=== PATIENT | female | born 1965 | race Caucasian/White ===

== ENCOUNTER 2016-07-08 03:09 | Emergency (ER) | payer SELFPAY ==
[2016-07-08 03:43] VITALS: BP 110/67; PULSE 107; TEMP 98.7; BMI 31.3
[2016-07-08] MEDS ORDERED: AZITHROMYCIN 250 MG TABLET (FP) PO STA (03:57)
[2016-07-08] MEDS ORDERED: IBUPROFEN 400 MG TABLET (FP) PO ONE ×2 (03:57→04:13)
--- NOTE | 2016-07-08 03:57 | PDOC ---
History of Present Illness - General Chief Complaint: Headache Stated Complaint: SEVERE HEAD ACHE/COUGHING/DIZZINESS Time Seen by Provider: 07/08/16 03:50 History Source: Patient Exam Limitations: No Limitations - History of Present Illness Initial Comments: 07/08/16 05:12 50 year old female presents with cough and cold, occasionally productive of yellow sputum. Pt has head and nasal and head congestion. Pt admits to being a smoker. Ramana recent travel or sick contacts. Pt also c/o mild headache as well. Past History - Travel Traveled outside of the country in the last 30 days: No - Past Medical History Allergies/Adverse Reactions: Allergies Allergy/AdvReac Type Severity Reaction Status Date / Time morphine AdvReac Mild Nausea Verified 07/08/16 03:43 Home Medications: Ambulatory Orders Diazepam [Valium] 5 mg PO Q8H PRN #3 tablet MDD 3 12/09/15 Oxycodone HCl/Acetaminophen [Percocet 5-325 mg Tablet] 1 tab PO Q4H PRN #15 tablet MDD 4 12/09/15 Azithromycin [Zithromax -] 250 mg PO UTDICT #6 tab 07/08/16 Ibuprofen 800 mg PO TID #30 tablet 07/08/16 Pseudoephedrine HCl [Sudafed] 30 mg PO Q6H #20 tablet 07/08/16 HTN: Yes - Immunization History Td Vaccination: Yes TDAP Vaccination: Yes Immunization Up to Date: Yes - Psycho/Social/Smoking Cessation Hx Anxiety: Yes Suicidal Ideation: No Smoking Status: Yes Smoking History: Never smoked Have you smoked in the past 12 months: No Number of Cigarettes Smoked Daily: 10 Information on smoking cessation initiated: No 'Breaking Loose' booklet given: 12/09/15 Hx Alcohol Use: No Drug/Substance Use Hx: No Substance Use Type: Marijuana Hx Substance Use Treatment: No Review of Systems - Review of Systems Constitutional: Yes: Symptoms Reported, See HPI, Chills, Fever. No: Diaphoresis , Loss of Appetite, Malaise, Night Sweats, Weight Stable HEENTM: Yes: Symptoms Reported, See HPI, Throat Pain. No: Eye Pain, Blurred Vision, Tearing, Recent change in vision, Ear Pain, Ear Discharge, Tinnitus, Nose Bleeding, Throat Swelling, Mouth Pain Respiratory: Yes: Symptoms reported, See HPI. No: Cough, Orthopnea, Shortness of Breath, SOB with Exertion, Productive cough Cardiac (ROS): Yes: Symptoms Reported, See HPI. No: Chest Pain, Edema, Irregular Heart Rate, Other ABD/GI: Yes: Symptoms Reported, See HPI, Abdominal Distended. No: Abd. Pain w/ defecation, Blood Streaked Bowels, Constipated, Diarrhea, Difficulty Swallowing , Nausea, Poor Appetite, Poor Fluid Intake : Yes: Symptoms Reported, See HPI. No: Burning, Dysuria, Discharge, Frequency , Flank Pain, Hematuria Musculoskeletal: Yes: Symptoms Reported, See HPI. No: Back Pain, Gout, Joint Pain, Neck Pain Integumentary: Yes: Symptoms Reported, See HPI. No: Bruising, Change in Color, Change in Hair/Nails, Dryness, Lesions, Lumps Neurological: Yes: Symptoms reported, See HPI, Headache. No: Numbness, Paresthesia, Pre-Existing Deficit, Weakness, Unsteady Gait Psychiatric: No: Anxiety, Depression, Frequent Crying, Stressors, Sleep Pattern Change Endocrine: Yes: Symptoms Reported, See HPI. No: Excessive Sweating, Intolerance to Cold, Increased Hunger, Increased Thirst, Unexplained Weight Gain Hematologic/Lymphatic: Yes: Symptoms Reported, See HPI. No: Anemia, Blood Clots , Easy Bleeding, Bleeding Diathesis, Lymph Node Abnormalities *Physical Exam - Vital Signs Last Vital Signs Temp Pulse Resp BP Pulse Ox 98.7 F 107 H 19 110/67 97 07/08/16 03:41 07/08/16 03:41 07/08/16 03:41 07/08/16 03:41 07/08/16 03:41 - Physical Exam Comments: 07/08/16 05:17 *Physical Exam General Appearance: Yes: Appropriately Dressed. No: Apparent Distress, Intoxicated HEENT: positive: EOMI, MAXIMILIANO, Normal ENT Inspection, Normal Voice, TMs Normal, Pharynx Normal. negative: Pale Conjunctivae, Photophobia, Scleral Icterus (R), Scleral Icterus (L) Neck: positive: Trachea midline, Normal Thyroid, Supple. negative: Tender, Rigid, Carotid bruit, Stridor, Lymphadenopathy (R), Lymphadenopathy (L), Thyromegaly Respiratory/Chest: positive: Lungs Clear, Normal Breath Sounds. negative: Chest Tender, Respiratory Distress, Accessory Muscle Use, Labored Respiration, RES, Crackles, Rales, Rhonchi, Stridor, Wheezing, Dullness Cardiovascular: positive: Regular Rhythm, Regular Rate, S1, S2. negative: Edema , JVD, Murmur, Bradycardia, Tachycardia Vascular Pulses: Dorsalis-Pedis (R): 2+, Doralis-Pedis (L): 2+ Gastrointestinal/Abdominal: positive: Normal Bowel Sounds, Flat, Soft. negative : Tender, Organomegaly, Pulsatile Mass, Increased Bowel Sounds, Decreased BS, Distended, Guarding, Rebound, Hernia, Hepatomegaly, Spleenomegaly Lymphatic: negative: Adenopathy, Tenderness Musculoskeletal: positive: Normal Inspection. negative: CVA Tenderness, Decreased Range of Motion Extremity: positive: Normal Capillary Refill, Normal Inspection, Normal Range of Motion, Pelvis Stable. negative: Tender, Pedal Edema, Swelling, Erythema Integumentary: positive: Normal Color, Dry, Warm. 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 negative: EOM Palsy, Facial Droop, Sensory Deficit Medical Decision Making - Medical Decision Making 07/08/16 03:59 Dr. Talley: The scribe's documentation has been prepared under my direction and personally reviewed by me in its entirery. I confirm that the note above accurately reflects all work, treatment, procedures, and medical decision making performed by me. *DC/Admit/Observation/Transfer Diagnosis at time of Disposition: URI (upper respiratory infection) - Discharge Dispostion Disposition: HOME Condition at time of disposition: Stable Admit: No - Prescriptions Prescriptions: Ibuprofen 800 mg PO TID #30 tablet Pseudoephedrine HCl [Sudafed] 30 mg PO Q6H #20 tablet Azithromycin [Zithromax -] 250 mg PO UTDICT #6 tab - Referrals Referrals: Ghazal Wagner MD [Staff Physician] - - Patient Instructions Printed Discharge Instructions: DI for Viral Upper Respiratory Infection -- Adult - Post Discharge Activity Work/School Note: Back to Work
[2016-07-08] MEDS ORDERED: PSEUDOEPHEDRINE HCL 30 MG TABLET PO SCH (04:00)
[2016-07-08] MEDS ORDERED: PSEUDOEPHEDRINE HCL 60 MG TABLET ONE (04:12)
[2016-07-08] MEDS ORDERED: AZITHROMYCIN 250 MG TABLET (FP) ONE (04:12)
== END 2016-07-08 05:20 | disposition home or self-care (01) ==
LOC: JER 03:09 → SUPCPDRO 03:09 → JER 05:20
DX: J06.9 Acute upper respiratory infection, unspecified (principal); I10 Essential (primary) hypertension
CPT/HCPCS: 99281-25

== ENCOUNTER 2016-11-29 15:29 | Emergency (ER) | payer SELFPAY ==
[2016-11-29 15:34] VITALS: TEMP 98.3; BMI 34.3
--- NOTE | 2016-11-29 16:09 | PDOC ---
History of Present Illness - General History Source: Patient Exam Limitations: No Limitations - History of Present Illness Initial Comments: 11/29/16 16:38 Pt. is a 51 y/o female with no PMH who presents to the ED with one day of nausea , non-bilious vomiting, fevers, chills, back pain, and body aches. Pt. states that she woke up early this morning with the nausea and vomiting. She also admits to lower abdominal pain. Has not received her flu shot this year. Also admits to frequency, urgency and diarrhea. Denies chest pain, shortness of breath, hematemasis, blood in the stool. Vital signs notable for a pulse of 101. <Dipika Becker - Last Filed: 11/30/16 23:18> <Chalo Brooks - Last Filed: 12/03/16 20:21> - General Chief Complaint: Pain, Acute Stated Complaint: VOMITING DIARRHEA Time Seen by Provider: 11/29/16 15:52 Past History - Travel Traveled outside of the country in the last 30 days: No Close contact w/someone who was outside of country & ill: No - Past Medical History HTN: Yes - Immunization History Td Vaccination: Yes TDAP Vaccination: Yes Immunization Up to Date: Yes - Suicide/Smoking/Psychosocial Hx Smoking Status: Yes Smoking History: Never smoked Have you smoked in the past 12 months: No Number of Cigarettes Smoked Daily: 5 Information on smoking cessation initiated: No 'Breaking Loose' booklet given: 12/09/15 Hx Alcohol Use: Yes (SOCIALLY) Drug/Substance Use Hx: Yes (MARIJUANA) Substance Use Type: Marijuana Hx Substance Use Treatment: No <Dipika Becker - Last Filed: 11/30/16 23:18> <Chalo Brooks - Last Filed: 12/03/16 20:21> - Past Medical History Allergies/Adverse Reactions: Allergies Allergy/AdvReac Type Severity Reaction Status Date / Time morphine AdvReac Mild Nausea Verified 11/29/16 15:34 Home Medications: Ambulatory Orders Melatonin 1 mg PO HS 11/29/16 Review of Systems - Review of Systems Able to Perform ROS?: Yes Is the patient limited Georgian proficient: No Constitutional: Yes: Chills, Fever. No: Diaphoresis, Weakness HEENTM: No: Ear Pain, Ear Discharge, Nose Pain, Nose Congestion Respiratory: Yes: Cough. No: Shortness of Breath, Wheezing Cardiac (ROS): No: Chest Pain, Lightheadedness, Palpitations, Syncope ABD/GI: Yes: Diarrhea, Nausea, Vomiting : Yes: Frequency. No: Burning, Dysuria, Discharge, Hematuria Musculoskeletal: Yes: Back Pain. No: Joint Pain, Muscle Pain Integumentary: No: Bruising, Erythema, Rash Neurological: No: Headache, Numbness, Weakness, Dizziness Psychiatric: No: Anxiety, Depression, Frequent Crying All Other Systems: Reviewed and Negative <Dipika Becker - Last Filed: 11/30/16 23:18> *Physical Exam - Vital Signs Last Vital Signs Temp Pulse Resp BP Pulse Ox 98.3 F 101 H 18 143/90 98 11/29/16 15:31 11/29/16 15:31 11/29/16 15:31 11/29/16 15:31 11/29/16 15:31 - Physical Exam General Appearance: Yes: Nourished, Appropriately Dressed, Mild Distress ( Appears uncomfortable, holding abdomen on exam bed. AAOx3) HEENT: positive: EOMI, MAXIMILIANO, Normal ENT Inspection, Normal Voice, Pharynx Normal Neck: positive: Trachea midline, Supple. negative: Tender, Rigid Respiratory/Chest: positive: Lungs Clear, Normal Breath Sounds. negative: Chest Tender, Respiratory Distress, Accessory Muscle Use Cardiovascular: positive: Regular Rhythm, Regular Rate, S1, S2 (present), Edema. 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, Fully Oriented, Alert, Normal Mood/ Affect, Normal Response, Motor Strength 5/5 <Dipika Becker - Last Filed: 11/30/16 23:18> - Vital Signs Last Vital Signs Temp Pulse Resp BP Pulse Ox 98.3 F 63 14 110/57 95 11/29/16 15:31 11/29/16 23:29 11/29/16 23:29 11/29/16 23:29 11/29/16 23:29 <Chalo Brooks - Last Filed: 12/03/16 20:21> ED Treatment Course - LABORATORY CBC & Chemistry Diagram: 11/29/16 17:00 11/29/16 17:00 <Dipika Becker - Last Filed: 11/30/16 23:18> - LABORATORY CBC & Chemistry Diagram: 11/29/16 17:00 11/29/16 17:00 - ADDITIONAL ORDERS Additional order review: 11/29/16 17:00 Blood Culture - Final Blood - Peripheral Venous Staphylococcus Epidermidis 11/29/16 16:22 Blood Culture - Final Blood - Peripheral Venous Staphylococcus Epidermidis 11/29/16 18:10 Urine Culture - Final Urine - Urine Clean Catch Contaminated: Please Repeat 11/29/16 17:00 Influenza Types A,B Antigen (TELLY) - Final Nasopharyngeal Swab - Final 11/29/16 17:00 RBC 4.25 MCV 76.7 L MCHC 32.3 RDW 18.0 H MPV 8.0 Neutrophils % 75.9 D Lymphocytes % 15.6 D Monocytes % 5.6 Eosinophils % 2.1 Basophils % 0.8 - Medications Given in the ED: ED Medications Discontinued Medications Generic Name Dose Route Start Last Admin Trade Name Mally PRN Reason Stop Dose Admin Acetaminophen 1,000 mg 11/29/16 16:24 11/29/16 16:45 Ofirmev Injection - IVPB 11/29/16 16:25 1,000 mg ONCE ONE Administration Hydromorphone HCl 1 mg 11/29/16 18:48 11/29/16 19:07 Dilaudid Injection - IVPUSH 11/29/16 18:49 1 mg ONCE ONE Administration Hydromorphone HCl 0.5 mg 11/29/16 22:38 11/29/16 23:03 Dilaudid Injection - IVPUSH 11/29/16 22:39 0.5 mg ONCE ONE Administration Sodium Chloride 1,000 mls @ 1,000 mls/hr 11/29/16 16:24 11/29/16 16:50 Normal Saline - IV 11/29/16 17:23 1,000 mls/hr ASDIR STA Administration Morphine Sulfate 4 mg 11/29/16 18:33 11/29/16 19:09 Morphine Injection - IVPUSH 11/29/16 18:34 Not Given ONCE ONE Ondansetron HCl 4 mg 11/29/16 16:24 11/29/16 16:59 Zofran Injection IVPUSH 11/29/16 16:25 4 mg ONCE ONE Administration <Ou,Chalo - Last Filed: 12/03/16 20:21> Medical Decision Making - Medical Decision Making 11/29/16 16:57 Pt. is a 51 y/o female with no PMH who presents to the ED with one day of fevers , chills, cough, nausea, vomiting, diarrhea, body aches, and lower abdominal pain. Pt. symptoms seem to lean towards a possible viral syndrome; however, could also be pylonephritis, UTI, pneumonia. Less likely appendicitis, colitis. 1. CBC, CMP, Lactic acid, blood cultures, UA, UC, Upreg, Influenza swab 2. Ofirmev, IV fluids, zofran 3. Re-evaluate. 11/29/16 17:32 Pt. still with abdominal pain and back pain with ofirmev. Will order dilaudid at this time for pain relief. 11/29/16 18:23 Influenza swab is negative at this time. Urine is negative. WBC is 10. Will order CT abdomen pelvis with contrast (IV/oral) 11/29/16 19:00 Sign out given to Urvashi Gutierrez [facility]. Waiting for CT/results. <Dipika Becker - Last Filed: 11/30/16 23:18> - Medical Decision Making 11/29/16 20:20 CTAP unremarkable other than incidental finding of lung nodule. Pt informed of possibility that this may represent cancer and understands need for follow up imaging. <ToddChalo - Last Filed: 12/03/16 20:21> *DC/Admit/Observation/Transfer - Discharge Dispostion Admit: No <Dipika Becker - Last Filed: 11/30/16 23:18> <OuChalo - Last Filed: 12/03/16 20:21> Diagnosis at time of Disposition: Gastroenteritis Abdominal pain Qualifiers: Abdominal location: lower abdomen, unspecified Qualified Code(s): R10.30 - Lower abdominal pain, unspecified - Discharge Dispostion Disposition: HOME Condition at time of disposition: Improved - Patient Instructions Printed Discharge Instructions: DI for Viral Gastroenteritis -- Adult Additional Instructions: Drink plenty of fluids. Start a BRAT diet: Bananas rice apples toast Follow up with you doctor as soon as possible. Return to the ER if symptoms worsen. - Post Discharge Activity Forms/Work/School Notes: Back to Work
[2016-11-29] MEDS ORDERED: SODIUM CHLORIDE 1,000 ML IV STA (16:24)
[2016-11-29] MEDS ORDERED: ACETAMINOPHEN 1000 MG/100 ML VIAL (NON FORMULARY) IVPB ONE (16:24)
[2016-11-29] MEDS ORDERED: ONDANSETRON 4 MG/2 ML VIAL IVPUSH ONE (16:24)
[2016-11-29] MEDS ORDERED: ACETAMINOPHEN INJECTION 100 ML IVPB ONE (16:28)
[2016-11-29] MEDS ORDERED: ONDANSETRON 4 MG/2 ML VIAL ONE (16:29)
[2016-11-29 17:08] LABS: BASOPHIL 0.8 % (0-2.0); EOSINOPHIL 2.1 % (0-4.5); MCH 24.8 pg (25.7-33.7); MCHC 32.3 g/dl (32.0-36.0); MEAN CELL VOLUME 76.7 fl (80-96); NEUTROPHILS 75.9 % (42.8-82.8); PLATELET COUNT 303 K/MM3 (134-434)
[2016-11-29 17:33] LABS: INR 1.13 (0.82-1.09); PROTHROMBIN TIME (PATIENT) 12.8 SEC (9.98-11.88)
[2016-11-29 17:44] LABS: ALBUMIN 3.2 g/dl (3.4-5.0); ANION GAP 7 (8-16); CALCIUM 8.4 mg/dL (8.5-10.1); CO2 27 mmol/L (21-32); GLUCOSE,RANDOM 111 mg/dL (74-106)
[2016-11-29 17:48] LABS: ALK PHOS 90 U/L (45-117); BILIRUBIN,TOTAL 0.6 mg/dL (0.2-1.0); CREATININE 0.6 mg/dL (0.55-1.02); SGOT/AST 20 U/L (15-37); SGPT/ALT 40 U/L (12-78); TOT PROT 7.1 g/dl (6.4-8.2)
[2016-11-29] MEDS ORDERED: morphine CARPU-JECT 4 MG/1 ML DISP.SYRIN IVPUSH ONE (18:33)
[2016-11-29] MEDS ORDERED: HYDROmorphone HCL CARPU-JECT 1 MG/1 ML DISP.SYRIN IVPUSH ONE ×2 (18:48→22:38)
[2016-11-29] MEDS ORDERED: HYDROmorphone HCL CARPU-JECT 1 MG/1 ML DISP.SYRIN ONE ×2 (19:01→23:01)
[2016-11-29 19:15] LABS: URINE APPEARANCE SLCLOUDY; URINE BILIRUBIN NEGATIVE (NEGATIVE); URINE BLOOD NEGATIVE (NEGATIVE); URINE COLOR DKYELLOW; URINE GLUCOSE (UA) NEGATIVE (NEGATIVE); URINE KETONE NEGATIVE (NEGATIVE); URINE NITRITE NEGATIVE (NEGATIVE); URINE PROTEIN NEGATIVE (NEGATIVE)
--- NOTE | 2016-11-29 19:32 | PDOC ---
*Physical Exam - Vital Signs Last Vital Signs Temp Pulse Resp BP Pulse Ox 98.3 F 68 18 133/82 96 11/29/16 15:31 11/29/16 19:07 11/29/16 19:07 11/29/16 19:07 11/29/16 19:07 - Physical Exam General Appearance: Yes: Appropriately Dressed Respiratory/Chest: positive: Lungs Clear, Normal Breath Sounds Cardiovascular: positive: Regular Rhythm, Regular Rate Gastrointestinal/Abdominal: positive: Tender (b/l lower quadrant tenderness. ), Soft, Decreased BS ED Treatment Course - LABORATORY CBC & Chemistry Diagram: 11/29/16 17:00 11/29/16 17:00 - ADDITIONAL ORDERS Additional order review: Laboratory Results 11/29/16 11/29/16 11/29/16 18:10 17:00 17:00 PT with INR 12.80 H INR 1.13 Sodium Potassium Chloride Carbon Dioxide Anion Gap BUN Creatinine Creat Clearance w eGFR Random Glucose Lactic Acid 1.0 Calcium Total Bilirubin AST ALT Alkaline Phosphatase Total Protein Albumin Urine Color Dkyellow Urine Appearance Slcloudy Urine pH 5.0 Urine Protein Negative Urine Glucose (UA) Negative Urine Ketones Negative Urine Blood Negative Urine Nitrite Negative Urine Bilirubin Negative Urine Urobilinogen 2.0 H 11/29/16 17:00 PT with INR INR Sodium 138 Potassium 3.9 Chloride 104 Carbon Dioxide 27 Anion Gap 7 L BUN 7 D Creatinine 0.6 Creat Clearance w eGFR > 60 Random Glucose 111 H Lactic Acid Calcium 8.4 L Total Bilirubin 0.6 D AST 20 ALT 40 D Alkaline Phosphatase 90 D Total Protein 7.1 Albumin 3.2 L Urine Color Urine Appearance Urine pH Urine Protein Urine Glucose (UA) Urine Ketones Urine Blood Urine Nitrite Urine Bilirubin Urine Urobilinogen 11/29/16 17:00 Influenza Types A,B Antigen (TELLY) - Final Nasopharyngeal Swab - Final 11/29/16 17:00 RBC 4.25 MCV 76.7 L MCHC 32.3 RDW 18.0 H MPV 8.0 Neutrophils % 75.9 D Lymphocytes % 15.6 D Monocytes % 5.6 Eosinophils % 2.1 Basophils % 0.8 - Medications Given in the ED: ED Medications Discontinued Medications Generic Name Dose Route Start Last Admin Trade Name Freq PRN Reason Stop Dose Admin Acetaminophen 1,000 mg 11/29/16 16:24 11/29/16 16:45 Ofirmev Injection - IVPB 11/29/16 16:25 1,000 mg ONCE ONE Administration Hydromorphone HCl 1 mg 11/29/16 18:48 11/29/16 19:07 Dilaudid Injection - IVPUSH 11/29/16 18:49 1 mg ONCE ONE Administration Sodium Chloride 1,000 mls @ 1,000 mls/hr 11/29/16 16:24 11/29/16 16:50 Normal Saline - IV 11/29/16 17:23 1,000 mls/hr ASDIR STA Administration Morphine Sulfate 4 mg 11/29/16 18:33 11/29/16 19:09 Morphine Injection - IVPUSH 11/29/16 18:34 Not Given ONCE ONE Ondansetron HCl 4 mg 11/29/16 16:24 11/29/16 16:59 Zofran Injection IVPUSH 11/29/16 16:25 4 mg ONCE ONE Administration Medical Decision Making - Medical Decision Making 11/29/16 19:37 Patient reports urinary frequency x1 year. NVD and abdominal pain started at 4 am yesterday. likely gastroenteritis. will CTAP to r/o colitis vs appendicitis 11/29/16 23:37 CTAP: Normal appendix. No active evidence of intestinal obstruction. Moderate distention of the gallbladder may be physiologic please correlate clinically for fasting. Mild hepatomegaly and hepatic steatosis. 6 mm lung nodule. all results discussed with patient. 11/29/16 23:42 will d/c home to follow up with pmd . brat diet. strict return precautions. *DC/Admit/Observation/Transfer Diagnosis at time of Disposition: Gastroenteritis Abdominal pain Qualifiers: Abdominal location: lower abdomen, unspecified Qualified Code(s): R10.30 - Lower abdominal pain, unspecified - Discharge Dispostion Disposition: HOME - Patient Instructions Printed Discharge Instructions: DI for Viral Gastroenteritis -- Adult Additional Instructions: Drink plenty of fluids. Start a BRAT diet: Bananas rice apples toast Follow up with you doctor as soon as possible. Return to the ER if symptoms worsen. - Post Discharge Activity Forms/Work/School Notes: Back to Work
[2016-11-29 22:06] LABS: URINE LEUK ESTERASE Negative (NEGATIVE)
[2016-11-29 23:29] VITALS: BP 110/57; PULSE 63
--- NOTE | 2016-11-30 23:21 | PDOC ---
Patient Follow-up (Call Back) - Post ED Follow - Up Chief Complaint: Nausea/Vomiting Condition at time of discharge: Improved Disposition at time of original discharge: HOME Reason for Call Back: Abnwl. Microbiology (One bottle of the set of 4 positive for gram (+) cocci in clusters. This most likely represents a contaminiation when drawing the sample. Call from micro at 22:30. Needs to be followed up on in AM.)
--- NOTE | 2016-12-01 11:03 | PDOC ---
Patient Follow-up (Call Back) - Post ED Follow - Up Reason for Call Back: Abnwl. Microbiology (Gram + cocci in clusters in aerobic an aerobic bottle Ucx contaminated Pt was seen for viral syndome, labs and lactate wnl called to see how pt feeling and l/m to call back) <Jennifer Schneider - Last Filed: 12/01/16 10:57> - Post ED Follow - Up Reason for Call Back: Abnwl. Microbiology (Blood culture 2 showed staphylococcal epidermis. Called and left message on her cell phone to callback. No answer on home phone [phone]. Will reattempt.) <Zainab Jaimes - Last Filed: 12/03/16 08:42> - Post ED Follow - Up Condition at time of discharge: Improved Disposition at time of original discharge: HOME
== END 2016-11-29 23:54 | disposition home or self-care (01) ==
LOC: JER 15:29
PROC: 3E0337Z Introduction of Electrolytic and Water Balance Substance into Peripheral Vein, Percutaneous Approach (ICD-10-PCS; principal; 2016-11-29)
PROC: 3E033NZ Introduction of Analgesics, Hypnotics, Sedatives into Peripheral Vein, Percutaneous Approach (ICD-10-PCS; 2016-11-29)
PROC: 3E033GC Introduction of Other Therapeutic Substance into Peripheral Vein, Percutaneous Approach (ICD-10-PCS; 2016-11-29)
PROC: 3E033NZ Introduction of Analgesics, Hypnotics, Sedatives into Peripheral Vein, Percutaneous Approach (ICD-10-PCS; 2016-11-29)
PROC: 3E033NZ Introduction of Analgesics, Hypnotics, Sedatives into Peripheral Vein, Percutaneous Approach (ICD-10-PCS; 2016-11-29)
DX: K52.9 Noninfective gastroenteritis and colitis, unspecified (principal)
CPT/HCPCS: 36415; 71010-TC; 74177-TC; 80053; 81003; 83605; 84703; 85025; 85610; 87040; 87086; 87186; 87804; 99283-25; Q9967

== ENCOUNTER 2017-02-16 08:58 | Emergency (ER) | payer SELFPAY ==
[2017-02-16 09:02] VITALS: BMI 34.3
[2017-02-16] MEDS ORDERED: ONDANSETRON 4 MG/2 ML VIAL IVPB ONE (10:32)
[2017-02-16] MEDS ORDERED: SODIUM CHLORIDE 1,000 ML IV STA (10:32)
[2017-02-16] MEDS ORDERED: KETOROLAC TROMETHAMINE 30 MG/1 ML VIAL IVPUSH ONE (10:32)
[2017-02-16] MEDS ORDERED: KETOROLAC TROMETHAMINE 30 MG/1 ML VIAL ONE (10:35)
[2017-02-16] MEDS ORDERED: ONDANSETRON 4 MG/2 ML VIAL ONE (10:35)
[2017-02-16 10:42] LABS: URINE APPEARANCE CLOUDY; URINE BLOOD NEGATIVE (NEGATIVE); URINE COLOR AMBER; URINE GLUCOSE (UA) NEGATIVE (NEGATIVE); URINE KETONE TRACE (NEGATIVE); URINE LEUK ESTERASE NEGATIVE (NEGATIVE); URINE NITRITE NEGATIVE (NEGATIVE)
[2017-02-16 10:42] LABS: BASO % 0.9 % (0-2.0); EOS % 0.6 % (0-4.5); HEMOGLOBIN 12.3 GM/dL (10.7-15.3); LYMPH % 7.6 % (8-40); MCH 24.8 pg (25.7-33.7); MCHC 30.9 g/dl (32.0-36.0); MEAN CELL VOLUME 80.2 fl (80-96); MONO % 11.1 % (3.8-10.2); NEUT % 79.8 % (42.8-82.8); PLATELET COUNT 186 K/MM3 (134-434); RBC 4.98 M/mm3 (3.60-5.2); RDW 21.1 % (11.6-15.6); WHITE BLOOD COUNT 3.9 K/mm3 (4.0-10.0)
[2017-02-16] MEDS ORDERED: ACETAMINOPHEN WITH CODEINE 300MG/30MG TABLET PO ONE (10:43)
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
[2017-02-16 10:46] LABS: URINE PROTEIN 2+ (NEGATIVE)
[2017-02-16 10:50] LABS: EPI CELLS MANY /HPF (FEW); GRANULAR CASTS 6 /lpf; URINE HYALINE CAST 11 /lpf; URINE MUCUS MANY
[2017-02-16 10:58] LABS: ALBUMIN 3.5 g/dl (3.4-5.0); ANION GAP 7 (8-16); BILIRUBIN,TOTAL 0.2 mg/dL (0.2-1.0); BLOOD UREA NITROGEN 7 mg/dL (7-18); CALCIUM 8.5 mg/dL (8.5-10.1); CHLORIDE 105 mmol/L (98-107); CO2 24 mmol/L (21-32); CREATININE 0.7 mg/dL (0.55-1.02); GLUCOSE,RANDOM 119 mg/dL (74-106); SGPT/ALT 131 U/L (12-78); SODIUM 136 mmol/L (136-145); TOT PROT 7.4 g/dl (6.4-8.2)
[2017-02-16 11:00] LABS: ALK PHOS 79 U/L (45-117)
[2017-02-16 11:01] LABS: POTASSIUM 3.9 mmol/L (3.5-5.1); SGOT/AST 141 U/L (15-37)
[2017-02-16] MEDS ORDERED: ACETAMINOPHEN WITH CODEINE 300MG/30MG TABLET ONE (11:02)
[2017-02-16 12:34] VITALS: BP 117/61; PULSE 83; TEMP 100
--- NOTE | 2017-02-16 15:07 | EKG ---
Test Reason : Blood Pressure : / mmHG Vent. Rate : 087 BPM Atrial Rate : 087 BPM P-R Int : 118 ms QRS Dur : 090 ms QT Int : 388 ms P-R-T Axes : 065 085 062 degrees QTc Int : 466 ms NORMAL SINUS RHYTHM POSSIBLE LEFT ATRIAL ENLARGEMENT NONSPECIFIC ST ABNORMALITY ABNORMAL ECG WHEN COMPARED WITH ECG OF 12-MAY-2015 12:01, T WAVE INVERSION NO LONGER EVIDENT IN LATERAL LEADS Confirmed by ISAC RICHTER, KATALINA ([id number]) on 02/16/2017 3:06:49 PM Referred By: Confirmed By:KATALINA CHAU MD
== END 2017-02-16 13:26 | disposition home or self-care (01) ==
LOC: JER 08:58
PROC: 3E0333Z Introduction of Anti-inflammatory into Peripheral Vein, Percutaneous Approach (ICD-10-PCS; principal; 2017-02-16)
PROC: 3E033GC Introduction of Other Therapeutic Substance into Peripheral Vein, Percutaneous Approach (ICD-10-PCS; 2017-02-16)
PROC: 3E0337Z Introduction of Electrolytic and Water Balance Substance into Peripheral Vein, Percutaneous Approach (ICD-10-PCS; 2017-02-16)
DX: J11.1 Influenza due to unidentified influenza virus with other respiratory manifestations (principal); I10 Essential (primary) hypertension; M54.30 Sciatica, unspecified side; F17.210 Nicotine dependence, cigarettes, uncomplicated
CPT/HCPCS: 36415; 71045-TC; 80053; 81003; 81015; 82550; 83605; 84484; 85025; 85379; 87086; 87804; 93005; 93010; 99284-25

== ENCOUNTER 2017-12-24 12:01 | Emergency (ER) | payer SELFPAY ==
[2017-12-24 12:09] VITALS: TEMP 98.4; BMI 34.3
[2017-12-24] MEDS ORDERED: ACETAMINOPHEN 1000 MG/100 ML VIAL (NON FORMULARY) IVPB ONE (13:04)
--- NOTE | 2017-12-24 13:13 | PDOC ---
History of Present Illness - General Chief Complaint: Pain Stated Complaint: LT LEG NUMBNESS & PAIN Time Seen by Provider: 12/24/17 12:16 History Source: Patient Exam Limitations: No Limitations - History of Present Illness Initial Comments: 12/24/17 13:02 52M w/ pmhx of HTN (not currently on meds) and sciatica presents with 2 week history of L lower leg pain. She also admits to 1 week of L lower leg numbness and now 2 day history of L lower leg burning. Pain is rated 6/10 and is described as a throbbing pain, worsened with leg extension and walking, but alleviated by knee flexion. It starts at her L knee and radiates down her leg to the dorsum of her L foot. She states she has never had these symptoms before. Pt admits to taking Aleve and Advil at home as well as uses warm compresses for the pain with minimal relief. She states the pain wakes her up from sleep and also has trouble falling asleep because laying down makes it worse. Denies trauma to her leg. PCP: Pt does not see a PCP because she does not have insurance. 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 Past History - Past Medical History Allergies/Adverse Reactions: Allergies Allergy/AdvReac Type Severity Reaction Status Date / Time morphine AdvReac Mild Nausea Verified 12/24/17 12:08 Home Medications: Ambulatory Orders Acetaminophen [Acetaminophen 8 Hour] 650 mg PO TID #21 tablet.er 12/24/17 COPD: No HTN: Yes - Immunization History Td Vaccination: Yes TDAP Vaccination: Yes Immunization Up to Date: Yes - Suicide/Smoking/Psychosocial Hx Smoking Status: Yes Smoking History: Current every day smoker Have you smoked in the past 12 months: No Number of Cigarettes Smoked Daily: 10 Information on smoking cessation initiated: No 'Breaking Loose' booklet given: 02/16/17 Hx Alcohol Use: No Drug/Substance Use Hx: No Substance Use Type: None Hx Substance Use Treatment: No Review of Systems - Review of Systems Able to Perform ROS?: Yes Is the patient limited Serbian proficient: No Constitutional: No: Chills, Fever HEENTM: Yes: Blurred Vision (chronic) Respiratory: Yes: Shortness of Breath (chronic due to tobacco use) Cardiac (ROS): No: Chest Pain ABD/GI: Yes: Constipated. No: Diarrhea, Nausea, Vomiting : No: Burning, Dysuria, Discharge, Flank Pain, Hematuria Musculoskeletal: Yes: Back Pain (chronic, L lumbar), Muscle Pain (distal LLE ), Muscle Weakness (LLE) Neurological: Yes: Headache (chronic), Unsteady Gait (due to LLE pain) *Physical Exam - Vital Signs Last Vital Signs Temp Pulse Resp BP Pulse Ox 98.4 F 104 H 20 168/89 99 12/24/17 12:05 12/24/17 12:05 12/24/17 12:05 12/24/17 12:05 12/24/17 12:05 - Physical Exam General Appearance: Yes: Nourished, Appropriately Dressed HEENT: positive: EOMI, MAXIMILIANO, Normal Voice, Pharynx Normal Neck: positive: Normal Thyroid, Supple Respiratory/Chest: positive: Lungs Clear, Normal Breath Sounds Cardiovascular: positive: Regular Rhythm, Regular Rate, S1, S2. negative: Murmur Vascular Pulses: Dorsalis-Pedis (R): 2+, Doralis-Pedis (L): 2+ Gastrointestinal/Abdominal: positive: Normal Bowel Sounds, Soft Musculoskeletal: negative: CVA Tenderness Extremity: positive: Normal Range of Motion Neurologic: positive: superintendent meters II-XII NML intact, Fully Oriented, Alert, Numbness, Sensory Deficit (LLE), Other (Decreased sensation on lateral L lower leg and foot; 5/5 motor strength in U/L R extremity; difficult to assess LLE motor strength due to pain) ED Treatment Course - LABORATORY CBC & Chemistry Diagram: 12/24/17 13:20 12/24/17 13:20 Medical Decision Making - Medical Decision Making 12/24/17 13:20 52F w/ pmhx of HTN and sciatica presents with 2 week hx of LLE pain. -Will obtain CBC/CMP, U/A, Upreg -Will give IV Tylenol for pain -re-assess pt 12/24/17 14:13 -CBC/CMP unremarkable -CT of lumbar spine ordered 12/24/17 16:10 -CT lumbar spine showed degenerative discogenic changes at L2-L3 and L5-S1 circumferential disc bulging and possible mild L of midline eccentric bulging L5 -S1. -Pt symptoms improved with IV Tylenol. DC to home. Discussed with pt need to follow up with PCP, recommended f/u at residency clinic for continuation of care. Will give Tylenol for pain. Case discussed with Dr. Palma. -Rafia Giraldo, DO - PGY1 *DC/Admit/Observation/Transfer Diagnosis at time of Disposition: Herniated disc Qualifiers: Spinal region: lumbosacral Qualified Code(s): M51.27 - Other intervertebral disc displacement, lumbosacral region - Discharge Dispostion Disposition: HOME Condition at time of disposition: Improved Decision to Admit order: No - Referrals Referrals: [facility] [Provider Group] - Patient Instructions Printed Discharge Instructions: DI for Herniated Disc Additional Instructions: You were seen in the ED for complaints of left leg pain. In the ED, a CT of the lumbar spine was done that showed multiple herniated discs in your lumbosacral spine. You were given IV Tylenol for your pain. Your symptoms improved. There is no acute need for hospitalization at this time. You are being discharged home. Please follow up with your primary care physician. You have been given a referral to follow up at the residency clinic of [facility]. It is important to follow up with your primary care doctor for your condition. Please take [id number] Tylenol 500 mg, 2 tablets, every 6 hours for your pain. If you experience worsening leg or back pain, new tingling and numbness, inability to work, chest pain, shortness of breath, please proceed to your nearest emergency room immediately. - Post Discharge Activity Forms/Work/School Notes: Back to Work
[2017-12-24 13:35] LABS: BASO % 0.6 % (0-2.0); EOS % 3.3 % (0-4.5); HEMATOCRIT 44.4 % (32.4-45.2); HEMOGLOBIN 14.3 GM/dL (10.7-15.3); LYMPH % 22.8 % (8-40); MCH 29.2 pg (25.7-33.7); MCHC 32.3 g/dl (32.0-36.0); MEAN CELL VOLUME 90.6 fl (80-96); MEAN PLT VOLUME 8.5 fl (7.5-11.1); MONO % 6.9 % (3.8-10.2); NEUT % 66.4 % (42.8-82.8); PLATELET COUNT 266 K/MM3 (134-434); RDW 17.1 % (11.6-15.6); WHITE BLOOD COUNT 8.5 K/mm3 (4.0-10.0)
[2017-12-24 13:55] LABS: ALBUMIN 3.5 g/dl (3.4-5.0); ALK PHOS 84 U/L (45-117); ANION GAP 7 MMOL/L (8-16); BILIRUBIN,TOTAL 0.4 mg/dL (0.2-1); BLOOD UREA NITROGEN 11 mg/dL (7-18); CALCIUM 8.7 mg/dL (8.5-10.1); CHLORIDE 105 mmol/L (98-107); CO2 26 mmol/L (21-32); CREATININE 0.5 mg/dL (0.55-1.3); GLUCOSE,RANDOM 92 mg/dL (74-106); POTASSIUM 3.9 mmol/L (3.5-5.1); SGOT/AST 23 U/L (15-37); SGPT/ALT 32 U/L (13-61); SODIUM 138 mmol/L (136-145); TOT PROT 7.2 g/dl (6.4-8.2)
[2017-12-24] MEDS ORDERED: ACETAMINOPHEN INJECTION 100 ML IVPB ONE ×2 (14:05→14:06)
[2017-12-24 14:26] LABS: URINE APPEARANCE CLEAR; URINE BILIRUBIN NEGATIVE (<2.0 mg/dL); URINE COLOR YELLOW; URINE GLUCOSE (UA) NEGATIVE (NEGATIVE); URINE KETONE NEGATIVE (NEGATIVE); URINE LEUK ESTERASE NEGATIVE (NEGATIVE); URINE NITRITE NEGATIVE (NEGATIVE); URINE PROTEIN NEGATIVE (NEGATIVE); URINE UROBILINOGEN NEGATIVE mg/dL (0.2-1.0)
--- NOTE | 2017-12-24 16:12 | PDOC ---
Attending Attestation - [facility] HPI: 12/24/17 16:16 The patient is a 52 year old female with a significant PMH of hypertension, chronic left sided back pain and sciatica who presents to the emergency department with let leg numbness and pain for about 2 weeks. The patient reports that she has been experiencing worsening pain for about 2 weeks. She states that in the past week she has noticed some numbness from her knee and down her leg. The patient reports that her pain is worsened with leg extension and alleviated with flexion. She states that she tried taking aleve for the pain and applying warm compresses with no apparent relief. The patient states that her left leg pain and numbness wakes her up out of her sleep. The patient denies any heavy lifting, trauma or injury prior to her pain. She denies any other symptoms . she denies any fever, chills, nausea , vomiting, diarrhea, constipation or urinary symptoms. She denies any chest pain, shortness of breath , headache or dizziness. The patient denies any other complaints. 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 Documentation prepared by Ketty Monzon, acting as medical lab technologist for Germania Palma MD. <Ketty Monzon - Last Filed: 12/24/17 16:16> - Resident Resident Name: Rafia Giraldo - ED Attending Attestation I have performed the following: I have examined & evaluated the patient, The case was reviewed & discussed with the resident, I agree w/resident's findings & plan, Exceptions are as noted - Physicial Exam PE: GENERAL: Awake, alert, and fully oriented, in no acute distress HEAD: No signs of trauma EYES: PERRLA, EOMI, sclera anicteric, conjunctiva clear ENT: Auricles normal inspection, hearing grossly normal, nares patent, oropharynx clear without exudates. Moist mucosa NECK: Normal ROM, supple, no lymphadenopathy, JVD, or masses LUNGS: Breath sounds equal, clear to auscultation bilaterally. No wheezes, and no crackles HEART: Regular rate and rhythm, normal S1 and S2, no murmurs, rubs or gallops ABDOMEN: Soft, nontender, normoactive bowel sounds. No guarding, no rebound. No masses EXTREMITIES: Normal range of motion, no edema. No clubbing or cyanosis. No cords, erythema, or tenderness NEUROLOGICAL: Cranial nerves II through XII grossly intact. Normal speech. Unable to ambulate due to back pain. Motor and sensation intact. SKIN: Warm, Dry, normal turgor, no rashes or lesions noted. SPINE: +Midline tenderness L5/S1 region. No step-offs. - Medical Decision Making Pt improved significantly with ofirmev. CT shows disc disease which is consistent with the presentation. Pt has no insurance, will sent to clinic for f /u, as she may need outpatient MRI if symptoms continue. <Germania Palma - Last Filed: 12/25/17 12:13>
[2017-12-24 17:35] VITALS: BP 146/85; PULSE 90
== END 2017-12-24 17:35 | disposition home or self-care (01) ==
LOC: JER 12:01
PROC: 3E033NZ Introduction of Analgesics, Hypnotics, Sedatives into Peripheral Vein, Percutaneous Approach (ICD-10-PCS; principal; 2017-12-24)
DX: M51.27 Other intervertebral disc displacement, lumbosacral region (principal)
CPT/HCPCS: 36415; 72131-TC; 80053; 81003; 84703; 85025; 99283-25; J0131

== ENCOUNTER 2018-01-27 13:49 | Emergency (ER) | payer SELFPAY ==
[2018-01-27 13:54] VITALS: BMI 32.5
[2018-01-27] MEDS ORDERED: SODIUM CHLORIDE 1,000 ML IV STA (14:31)
[2018-01-27] MEDS ORDERED: KETOROLAC TROMETHAMINE 30 MG/1 ML VIAL IVPUSH ONE (14:31)
[2018-01-27] MEDS ORDERED: KETOROLAC TROMETHAMINE 30 MG/1 ML VIAL ONE (14:32)
[2018-01-27] MEDS ORDERED: KETOROLAC TROMETHAMINE 15 MG/ML VIAL ONE (14:32)
[2018-01-27 15:32] LABS: ALK PHOS 105 U/L (45-117); ANION GAP 9 MMOL/L (8-16); BILIRUBIN,TOTAL 0.7 mg/dL (0.2-1); BLOOD UREA NITROGEN 11 mg/dL (7-18); CALCIUM 8.9 mg/dL (8.5-10.1); CHLORIDE 105 mmol/L (98-107); CO2 23 mmol/L (21-32); CREATININE 0.7 mg/dL (0.55-1.3); GLUCOSE,RANDOM 86 mg/dL (74-106); LIPASE 102 U/L (73-393); MAGNESIUM 2.1 mg/dL (1.8-2.4); POTASSIUM 4.3 mmol/L (3.5-5.1); SGOT/AST 18 U/L (15-37); SGPT/ALT 28 U/L (13-61); SODIUM 137 mmol/L (136-145); TOT PROT 7.9 g/dl (6.4-8.2)
--- NOTE | 2018-01-27 16:07 | PDOC ---
History of Present Illness - General Chief Complaint: Pain Stated Complaint: PAIN Time Seen by Provider: 01/27/18 14:30 History Source: Patient - History of Present Illness Initial Comments: 01/27/18 16:18 The patient is a 52 year old female with a PMH of HTN, sciatic, chronic back pain (2/2 to herniated disc x3) who presents to our ED c/o acute onset of abdominal pain. The pain started this morning when patient woke up and is sharp , localized to her LLQ, intermittent occurring 2-3 times/hour lasting 2-3 minutes. Denies nausea/vomiting, diarrhea/constipation. Last BM was this morning and was normal. Last PO intake while in ED. States she has a h/o ovarian cyst on her R side which was a simlar pain and a drug she believes is called "Dilaudid" helped her pain at that time. LMP was in September 2017 and believes she is going through menopause because she is experiencing hot flashes. Allergy: Morphine (vomiting) Surgical: Tubal Ligation Social: 1 ppd for 20+ year, social alcohol, denies recreational drugs PMD: none, as per EMR has been referred to [facility] IM resident clinic As per EMR, patient was last evaluated in our ED in 12/2017 for LLE numbness at which time CT showed herniated discs patient was discharged with instruction to establish primary care at IM resident clinic. TVUS in 2015 shows R sided cyst measuring 2.3 x 2.1 x 1.6 (patient being evaluated for vaginal bleeding). Past History - Past Medical History Allergies/Adverse Reactions: Allergies Allergy/AdvReac Type Severity Reaction Status Date / Time morphine AdvReac Mild Nausea Verified 01/27/18 13:53 Home Medications: Ambulatory Orders Metronidazole [Flagyl] 500 mg PO TID #21 capsule 01/27/18 levoFLOXacin [Levaquin -] 500 mg PO DAILY #7 tablet 01/27/18 COPD: No HTN: Yes Other medical history: herniated disc - Immunization History Td Vaccination: Yes TDAP Vaccination: Yes Immunization Up to Date: Yes - Suicide/Smoking/Psychosocial Hx Smoking Status: Yes Smoking History: Current some day smoker Have you smoked in the past 12 months: No Number of Cigarettes Smoked Daily: 10 Information on smoking cessation initiated: No 'Breaking Loose' booklet given: 02/16/17 Hx Alcohol Use: Yes (social) Drug/Substance Use Hx: No Substance Use Type: None Hx Substance Use Treatment: No Review of Systems - Review of Systems Constitutional: No: Chills, Fever Respiratory: No: Cough, Shortness of Breath Cardiac (ROS): No: Chest Pain, Lightheadedness, Palpitations, Syncope ABD/GI: Yes: Abdominal cramping. No: Blood Streaked Bowels, Constipated, Diarrhea, Nausea, Rectal Bleeding, Vomiting : No: Burning, Dysuria *Physical Exam - Vital Signs Last Vital Signs Temp Pulse Resp BP Pulse Ox 98.3 F 129 H 25 H 200/100 H 99 01/27/18 13:51 01/27/18 13:51 01/27/18 13:51 01/27/18 13:51 01/27/18 13:51 - Physical Exam General Appearance: Yes: Nourished, Obese HEENT: positive: Normal Voice, Hearing Grossly Normal Neck: positive: Trachea midline, Supple Respiratory/Chest: positive: Lungs Clear, Normal Breath Sounds. negative: Crackles, Rales, Rhonchi, Stridor, Wheezing Cardiovascular: positive: S1, S2. negative: Edema, JVD Gastrointestinal/Abdominal: positive: Normal Bowel Sounds, Soft, Other (LLQ tenderness, ) Musculoskeletal: negative: CVA Tenderness (R), CVA Tenderness (L) Extremity: positive: Normal Capillary Refill, Normal Inspection Moderate Sedation - Procedure Monitoring Vital Signs: Procedure Monitoring Vital Signs Temperature 98.3 F 01/27/18 13:51 Pulse Rate 129 H 01/27/18 13:51 Respiratory Rate 25 H 01/27/18 13:51 Blood Pressure 200/100 H 01/27/18 13:51 O2 Sat by Pulse Oximetry (%) 99 01/27/18 13:51 ED Treatment Course - LABORATORY CBC & Chemistry Diagram: 01/27/18 15:00 01/27/18 15:00 - ADDITIONAL ORDERS Additional order review: Laboratory Results 01/27/18 15:00 Sodium 137 Potassium 4.3 Chloride 105 Carbon Dioxide 23 Anion Gap 9 BUN 11 Creatinine 0.7 Creat Clearance w eGFR > 60 Random Glucose 86 Calcium 8.9 Magnesium 2.1 Total Bilirubin 0.7 AST 18 ALT 28 Alkaline Phosphatase 105 Total Protein 7.9 Albumin 4.0 Lipase 102 - Medications Given in the ED: ED Medications Discontinued Medications Generic Name Dose Route Start Last Admin Trade Name Freq PRN Reason Stop Dose Admin Sodium Chloride 1,000 mls @ 1,000 mls/hr 01/27/18 14:31 01/27/18 14:59 Normal Saline - IV 01/27/18 15:30 1,000 mls/hr ASDIR STA Administration Ketorolac Tromethamine 30 mg 01/27/18 14:31 01/27/18 14:35 Toradol Injection - IVPUSH 01/27/18 14:32 30 mg ONCE ONE Administration Medical Decision Making - Medical Decision Making 01/27/18 16:23 52 year old female with acute onset of LLQ abdominal pain. Initial VS hypertensive and tachycardic, however repeat VS shows BP 147/98, remains tachycardic at 105. TTP on LLQ without peritoneal signs. Frontal diagnosis: adenxal pathology including ovarian torsion/cyst, renal pathology including nephrolithiasis, renal artery stenosis, less likely colitis, diverticulitis, mesenteric ischemia. Basic labs, UA/Urine culture ordered in triage pending. Dilaudid for pain. Reassess. 01/27/18 17:05 01/27/18 17:09 Mild leukocytosis (13.1) UA pending 01/27/18 18:01 Patient reassessed at bedside, symptomatically improved with Dilaudid, repeat belly exam shows continued LLQ TTP with some epigastric TTP. Will obtain abdomen CT w/PO contrast to r/o diverticulosis vs. dilaudid demand. Zofran for nausea. 01/27/18 19:30 UA shows 1+ blood, Nitrite (-), Leukocyte esterase (-), 5 WBC --> less likely renal/UTI, patient to CT @ 199901/27/18 22:13 CT Abdomen/Pelvis shows diverticulosis w/o diverticulitis however as patient has focal LLQ tenderness, will treat for clinical diverticulitis. Follow-up with GI. Patient and patient's son counseled on plan of care. I discussed the physical exam findings, ancillary test results and final diagnoses with the patient. I answered all of the patient's questions. The patient was satisfied with the care received and felt comfortable with the discharge plan and treatment plan. The patient will return to the Emergency Department with any new, persistent or worsening symptoms. *DC/Admit/Observation/Transfer Diagnosis at time of Disposition: Abdominal pain - Discharge Dispostion Disposition: HOME Condition at time of disposition: Good Decision to Admit order: No - Prescriptions Prescriptions: levoFLOXacin [Levaquin -] 500 mg PO DAILY #7 tablet Metronidazole [Flagyl] 500 mg PO TID #21 capsule - Referrals Referrals: Travis Holly MD [Staff Physician] - Reza Fine DO [Staff Physician] - - Patient Instructions Printed Discharge Instructions: DI for Diverticulitis, DI for Diverticulosis Additional Instructions: You were evaluated today for your abdominal pain. A cat scan of your abdomen shows mild diverticulosis (information about this condition provided in your discharge papers). At this time you are safe for discharge home. We have sent two antibiotics to your pharmacy. Please complete the entire prescribed antibiotic course. Please make an appointment for follow-up evaluation with your primary care doctor in the next 3 days. Should you not have a primary care doctor a referral has been provided for you. In addition, please make an appointment with a curb worker (contact information provided) for further evaluation. Your care is not complete until you are evaluated by a curb worker and a primary care doctor. Return to the Emergency Department for any new/worsening/concerning symptoms. - Post Discharge Activity
[2018-01-27 16:13] LABS: BASO % 0.8 % (0-2.0); EOS % 1.5 % (0-4.5); HEMATOCRIT 46.6 % (32.4-45.2); LYMPH % 14.6 % (8-40); MCHC 34.3 g/dl (32.0-36.0); MEAN CELL VOLUME 90.4 fl (80-96); MEAN PLT VOLUME 8.8 fl (7.5-11.1); MONO % 6.4 % (3.8-10.2); NEUT % 76.7 % (42.8-82.8); PLATELET COUNT 290 K/MM3 (134-434); RBC 5.16 M/mm3 (3.60-5.2); RDW 15.9 % (11.6-15.6); WHITE BLOOD COUNT 13.1 K/mm3 (4.0-10.0)
[2018-01-27] MEDS ORDERED: HYDROmorphone HCL CARPU-JECT 2 MG/1 ML DISP.SYRIN IVPUSH ONE ×2 (16:15→16:36)
--- NOTE | 2018-01-27 16:36 | PDOC ---
Attending Attestation - HPI HPI: 01/27/18 16:40 The patient is a 52 year old female with a significant past medical history of HTN, sciatica, chronic back pain (2/2 to herniated disc x3) who presents to the emergency department with complaint of left lower abdominal pain since this morning. She describes the pain as sharp, localized to the left lower quadrant, intermittent lasting 2-3 minutes and self-resolving. She denies any other associated symptoms. She denies any exacerbating or alleviating factors. She denies taking OTC medication for her current pain. LMP was in September 2017 and believes she is going through menopause because she is experiencing hot flashes. Allergy: Morphine (vomiting) Surgical: Tubal Ligation Social: 1 ppd for 20+ year, social alcohol, denies recreational drugs PCP: Dr. Hackett - Medical Decision Making 01/27/18 16:40 Documentation prepared by Luz Vance, acting as medical center representative for Andesr Mcnulty MD <Luz Vance - Last Filed: 01/27/18 16:40> - Physicial Exam PE: 01/27/18 17:34 CONSTITUTIONAL: (+) Obese. Awake and alert. NECK: Supple; non-tender; no cervical lymphadenopathy CARD: Normal S1, S2; no murmurs, rubs, or gallops RESP: Normal chest excursion with respiration; breath sounds clear and equal bilaterally; no wheezes, rhonchi, or rales ABD: (+) Left lower quadrant tenderness. No rebound or guarding. Soft, non- distended. No palpable organomegaly, no palpable hernias. EXT: Normal ROM in all four extremities; non-tender to palpation; distal pulses intact SKIN: Warm, dry, no rash NEURO: No focal neurological deficiencies. <Jr Posadas - Last Filed: 01/27/18 17:57> - Resident Resident Name: Tracy Márquez - ED Attending Attestation I have performed the following: I have examined & evaluated the patient, The case was reviewed & discussed with the resident, I agree w/resident's findings & plan, Exceptions are as noted - Medical Decision Making 01/27/18 22:36 52-year-old female presents with atraumatic left lower quadrant pain. CBC reveals mild leukocytosis with predominance of neutrophils. Urinalysis within normal limit. Will obtain CT that and pelvis to rule out diverticulitis. Will reassess. Likely discharge. 01/27/18 22:41 Patient improved clinically. Patient tolerates by mouth. CT that and pelvis reveals no evidence of diverticulitis, diverticulosis is present. Given leukocytosis and clinical findings, I suspect mild clinical diverticulitis. Will treat with Levaquin and Flagyl with outpatient follow-up with GI. <Anders Mcnulty - Last Filed: 01/27/18 22:41>
[2018-01-27] MEDS ORDERED: HYDROmorphone HCl 2 MG/ML VIAL ONE (16:38)
[2018-01-27] MEDS ORDERED: ONDANSETRON 4 MG/2 ML VIAL IVPUSH ONE ×2 (17:55→20:07)
[2018-01-27] MEDS ORDERED: ONDANSETRON 4 MG/2 ML VIAL ONE ×2 (18:04→20:10)
[2018-01-27 18:18] LABS: URINE APPEARANCE CLOUDY; URINE COLOR AMBER; URINE GLUCOSE (UA) NEGATIVE (NEGATIVE); URINE KETONE TRACE (NEGATIVE); URINE LEUK ESTERASE NEGATIVE (NEGATIVE); URINE NITRITE NEGATIVE (NEGATIVE); URINE PROTEIN 2+ (NEGATIVE); URINE UROBILINOGEN 4.0 E.U/dl mg/dL (0.2-1.0)
[2018-01-27 18:54] LABS: EPI CELLS MODERATE /HPF (FEW); URINE HYALINE CAST 123 /lpf; URINE MUCUS MANY
[2018-01-27] MEDS ORDERED: morphine SULFATE 4 MG/ML VIAL IVPUSH ONE (20:07)
[2018-01-27] MEDS ORDERED: morphine SULFATE 4 MG/ML VIAL ONE (20:09)
[2018-01-27 23:05] VITALS: BP 136/68; PULSE 98; TEMP 98.6
== END 2018-01-27 23:04 | disposition home or self-care (01) ==
LOC: JER 13:49
PROC: 3E0337Z Introduction of Electrolytic and Water Balance Substance into Peripheral Vein, Percutaneous Approach (ICD-10-PCS; principal; 2018-01-27)
PROC: 3E033NZ Introduction of Analgesics, Hypnotics, Sedatives into Peripheral Vein, Percutaneous Approach (ICD-10-PCS; 2018-01-27)
PROC: 3E033GC Introduction of Other Therapeutic Substance into Peripheral Vein, Percutaneous Approach (ICD-10-PCS; 2018-01-27)
PROC: 3E033GC Introduction of Other Therapeutic Substance into Peripheral Vein, Percutaneous Approach (ICD-10-PCS; 2018-01-27)
PROC: 3E0333Z Introduction of Anti-inflammatory into Peripheral Vein, Percutaneous Approach (ICD-10-PCS; 2018-01-27)
DX: K57.30 Diverticulosis of large intestine without perforation or abscess without bleeding (principal)
CPT/HCPCS: 36415; 74177-TC; 76775-TC; 76830-TC; 80053; 81003; 81015; 83690; 83735; 85025; 87086; 99283-25; J7030; Q9967

== ENCOUNTER 2018-01-31 12:20 | Emergency (ER) | payer SELFPAY ==
[2018-01-31] MEDS ORDERED: SODIUM CHLORIDE 1,000 ML IV STA (12:27)
[2018-01-31 12:31] VITALS: TEMP 99; BMI 34.3
--- NOTE | 2018-01-31 12:38 | PDOC ---
History of Present Illness - General Chief Complaint: Pain Stated Complaint: ABDOMINAL PAIN Time Seen by Provider: 01/31/18 12:22 History Source: Patient Exam Limitations: No Limitations - History of Present Illness Travel History: No Initial Comments: 01/31/18 13:18 Best Contact:[phone] PCP:N/A Pmhx:HTN Pshx: 1994: BTL Allergies:Morphine/nausea FH:0 Social Hx: Cigarettes/ 1pk/d/30 years, last cigarette this am Alcohol/ social Drugs/ marijuana 52-year-old female nela presents to the emergency department with her son complaining of left lower quadrant abdominal pain since this morning. Pain is described as 10/10 sharp nonradiating intermittent discomfort without fever, chills, nausea/vomiting, headache, dizziness, lightheadedness, neck pain/back pain, chest pain, shortness of breath, urinary symptoms: Frequency/urgency/ hesitancy, hematuria. There are no alleviating or exacerbating factors. Patient was diagnosed with diverticulosis 4 days ago and was discharged on Levaquin and Flagyl. Patient states she's been compliant with the medication. Past History - Past Medical History Allergies/Adverse Reactions: Allergies Allergy/AdvReac Type Severity Reaction Status Date / Time morphine AdvReac Mild Nausea Verified 01/31/18 12:31 Home Medications: Ambulatory Orders Metronidazole [Flagyl] 500 mg PO TID #21 capsule 01/27/18 levoFLOXacin [Levaquin -] 500 mg PO DAILY #7 tablet 01/27/18 COPD: No GI Disorders: Yes (diverticulits) HTN: Yes - Immunization History Td Vaccination: Yes TDAP Vaccination: Yes Immunization Up to Date: Yes - Suicide/Smoking/Psychosocial Hx Smoking Status: Yes Smoking History: Never smoked Have you smoked in the past 12 months: No Number of Cigarettes Smoked Daily: 10 Information on smoking cessation initiated: No 'Breaking Loose' booklet given: 02/16/17 Hx Alcohol Use: No Drug/Substance Use Hx: No Substance Use Type: None Hx Substance Use Treatment: No Review of Systems - Review of Systems Able to Perform ROS?: Yes Comments:: 01/31/18 13:17 CONSTITUTIONAL: Absent: fever, chills, diaphoresis, generalized weakness, malaise, loss of appetite HEENT: Absent: rhinorrhea, nasal congestion, throat pain, throat swelling, difficulty swallowing, mouth swelling, ear pain, eye pain, visual Changes CARDIOVASCULAR: Absent: chest pain, loss of consciousness, palpitations, irregular heart rate, peripheral edema RESPIRATORY: Absent: cough, shortness of breath, dyspnea with exertion, orthopnea, wheezing, stridor, hemoptysis GASTROINTESTINAL: +LLQ pain Absent: abdominal distension, nausea, vomiting, diarrhea, constipation, melena, hematochezia GENITOURINARY: Absent: dysuria, frequency, urgency, hesitancy, hematuria, flank pain, genital pain MUSCULOSKELETAL: Absent: myalgia, arthralgia, joint swelling SKIN: Absent: rash, itching, pallor HEMATOLOGIC/IMMUNOLOGIC: Absent: easy bleeding, easy bruising, lymphadenopathy, frequent infections ENDOCRINE: Absent: unexplained weight gain, unexplained weight loss, heat intolerance, cold intolerance NEUROLOGIC: Absent: headache, focal weakness or paresthesias, dizziness, unsteady gait, seizure, mental status changes, bladder or bowel incontinence PSYCHIATRIC: Absent: anxiety, depression, suicidal or homicidal ideation, hallucinations. Is the patient limited [place] proficient: No *Physical Exam - Vital Signs Last Vital Signs Temp Pulse Resp BP Pulse Ox 99.0 F 124 H 18 207/138 H 100 01/31/18 12:21 01/31/18 12:21 01/31/18 12:21 01/31/18 12:21 01/31/18 12:21 - Physical Exam Comments: 01/31/18 13:18 GENERAL: Well developed, well nourished. Awake and alert. No acute distress. HEENT: Normocephalic, atraumatic. PERRLA, EOMI. No conjunctival pallor. Sclera are non- icteric. Moist mucous membranes. Oropharynx is clear. NECK: Supple. Full ROM. No JVD. Carotid pulses 2+ and symmetric, without bruits. No thyromegaly. No lymphadenopathy. CARDIOVASCULAR: Regular rate and rhythm. No murmurs, rubs, or gallops. Distal pulses are 2+ and symmetric. PULMONARY: No evidence of respiratory distress. Lungs clear to auscultation bilaterally. No wheezing, rales or rhonchi. ABDOMINAL: +LLQ pain on palp Soft. Non-distended. No rebound or guarding. No organomegaly. Normoactive bowel sounds. MUSCULOSKELETAL Normal range of motion at all joints. No bony deformities or tenderness. No CVA tenderness. EXTREMITIES: No cyanosis. No clubbing. No edema. No calf tenderness. SKIN: Warm and dry. Normal capillary refill. No rashes. No jaundice. NEUROLOGICAL: Alert, awake, appropriate. Cranial nerves 2-12 intact. No deficits to light touch and temperature in face, upper extremities and lower extremities. No motor deficits in the in face, upper extremities and lower extremities. Normoreflexic in the upper and lower extremities. Normal speech. Toes are down- going bilaterally. Gait is normal without ataxia. PSYCHIATRIC: Cooperative. Good eye contact. Appropriate mood and affect. Moderate Sedation - Procedure Monitoring Vital Signs: Procedure Monitoring Vital Signs Temperature 99.0 F 01/31/18 12:21 Pulse Rate 124 H 01/31/18 12:21 Respiratory Rate 18 01/31/18 12:21 Blood Pressure 207/138 H 01/31/18 12:21 O2 Sat by Pulse Oximetry (%) 100 01/31/18 12:21 ED Treatment Course - LABORATORY CBC & Chemistry Diagram: 01/31/18 12:23 01/31/18 12:23 - RADIOLOGY Radiograph Interpretation: 01/31/18 13:18 CT abd/pelvis iv contrast: Unremarkable CT of the abdomen and pelvis no enlarged abdominal or pelvic lymph nodes, the pelvic organs are grossly unremarkable, the appendix is normal, the remainder of the bowel is unremarkable. The liver, gallbladder, adrenals, pancreas and spleen are unremarkable. *DC/Admit/Observation/Transfer Diagnosis at time of Disposition: Diverticulosis Qualifiers: Diverticulosis site: unspecified location Diverticulosis bleeding: diverticulosis without bleeding Qualified Code(s): K57.90 - Diverticulosis of intestine, part unspecified, without perforation or abscess without bleeding - Discharge Dispostion Disposition: HOME Condition at time of disposition: Stable Decision to Admit order: No - Referrals Referrals: Slava Abad MD [Staff Physician] - - Patient Instructions Printed Discharge Instructions: DI for Diverticulosis Additional Instructions: Follow up with your physician and the [facility] this week Return to the ER for severe/persistent/worsening symptoms - Post Discharge Activity
[2018-01-31] MEDS ORDERED: HYDROmorphone HCL CARPU-JECT 2 MG/1 ML DISP.SYRIN IVPUSH ONE (12:40)
[2018-01-31] MEDS ORDERED: ONDANSETRON 4 MG/2 ML VIAL IVPUSH ONE (12:40)
[2018-01-31] MEDS ORDERED: HYDROmorphone HCl 2 MG/ML VIAL ONE (12:42)
[2018-01-31] MEDS ORDERED: ONDANSETRON 4 MG/2 ML VIAL ONE (12:42)
[2018-01-31 12:45] LABS: BASO % 1.1 % (0-2.0); HEMATOCRIT 42.2 % (32.4-45.2); HEMOGLOBIN 14.9 GM/dL (10.7-15.3); LYMPH % 19.4 % (8-40); MCH 32.1 pg (25.7-33.7); MCHC 35.4 g/dl (32.0-36.0); MEAN CELL VOLUME 90.8 fl (80-96); MEAN PLT VOLUME 8.2 fl (7.5-11.1); MONO % 7.3 % (3.8-10.2); NEUT % 69.2 % (42.8-82.8); PLATELET COUNT 238 K/MM3 (134-434); RBC 4.65 M/mm3 (3.60-5.2); RDW 15.5 % (11.6-15.6)
[2018-01-31 13:28] LABS: ALBUMIN 3.3 g/dl (3.4-5.0); ALK PHOS 86 U/L (45-117); ANION GAP 6 MMOL/L (8-16); BILIRUBIN,TOTAL 0.4 mg/dL (0.2-1); BLOOD UREA NITROGEN 7 mg/dL (7-18); CALCIUM 8.2 mg/dL (8.5-10.1); CHLORIDE 106 mmol/L (98-107); CO2 27 mmol/L (21-32); CREATININE 0.6 mg/dL (0.55-1.3); GLUCOSE,RANDOM 100 mg/dL (74-106); POTASSIUM 4.1 mmol/L (3.5-5.1); SGOT/AST 18 U/L (15-37); SGPT/ALT 25 U/L (13-61); SODIUM 139 mmol/L (136-145)
[2018-01-31 14:00] LABS: HCG,QUALITATIVE URINE Negative
[2018-01-31 14:11] VITALS: BP 160/80; PULSE 101
[2018-01-31 14:27] LABS: URINE APPEARANCE CLEAR; URINE BILIRUBIN NEGATIVE (<2.0 mg/dL); URINE COLOR YELLOW; URINE GLUCOSE (UA) NEGATIVE (NEGATIVE); URINE KETONE NEGATIVE (NEGATIVE); URINE LEUK ESTERASE NEGATIVE (NEGATIVE); URINE NITRITE NEGATIVE (NEGATIVE); URINE PROTEIN NEGATIVE (NEGATIVE); URINE UROBILINOGEN NEGATIVE mg/dL (0.2-1.0)
[2018-01-31 14:30] LABS: EPI CELLS FEW /HPF (FEW); URINE BACTERIA RARE /hpf (NONE SEEN); URINE MUCUS FEW
== END 2018-01-31 19:00 | disposition home or self-care (01) ==
LOC: JER 12:20
DX: K57.90 Diverticulosis of intestine, part unspecified, without perforation or abscess without bleeding (principal)
CPT/HCPCS: 36415; 74176; 80053; 81003; 81015; 84703; 85025; 99282-25; J7030

== ENCOUNTER 2018-10-03 12:57 | Emergency (ER) | payer SELFPAY ==
[2018-10-03 13:07] VITALS: BMI 34.3
[2018-10-03] MEDS ORDERED: SODIUM CHLORIDE 1,000 ML IV STA (13:07)
[2018-10-03] MEDS ORDERED: ONDANSETRON 4 MG/2 ML VIAL IVPUSH ONE (13:07)
--- NOTE | 2018-10-03 13:08 | PDOC ---
Rapid Medical Evaluation Chief Complaint: Vomiting/Diarrhea Time Seen by Provider: 10/03/18 13:04 Medical Evaluation: Allergies Allergy/AdvReac Type Severity Reaction Status Date / Time morphine AdvReac Mild Nausea Verified 01/31/18 12:31 10/03/18 13:04 Pt presents to the ER for 3 days of N/V/D. Also admits to LUQ pain which started today. States she had a fever which broke today. Hx of diverticulitis in January. Denies recent travel or recent abx use. Exam: TTP LUQ Orders: Labs, urine, IV insert Pt to proceed to the ER for further evaluation Discharge Disposition - Diagnosis Vomiting - Referrals - Patient Instructions - Post Discharge Activity
[2018-10-03] MEDS ORDERED: KETOROLAC TROMETHAMINE 30 MG/1 ML VIAL IVPUSH ONE (13:17)
--- NOTE | 2018-10-03 13:20 | PDOC ---
History of Present Illness - General Chief Complaint: Vomiting/Diarrhea Stated Complaint: VOMITING/DIARRHEA/ABD PAIN Time Seen by Provider: 10/03/18 13:04 History Source: Patient - History of Present Illness Timing/Duration: reports: getting worse Quality: reports: severe Abdominal Pain Onset Location: reports: LUQ Past History - Past Medical History Allergies/Adverse Reactions: Allergies Allergy/AdvReac Type Severity Reaction Status Date / Time morphine AdvReac Mild Nausea Verified 10/03/18 13:07 Home Medications: Ambulatory Orders Metronidazole [Flagyl] 500 mg PO TID #21 capsule 01/27/18 levoFLOXacin [Levaquin -] 500 mg PO DAILY #7 tablet 01/27/18 Tramadol HCl/Acetaminophen [Tramadol-Acetaminophn 37.5-325] 1 each PO BID #6 tablet MDD 2 01/31/18 Ibuprofen [Motrin -] 600 mg PO QID #28 tablet 10/03/18 Ondansetron HCl [Zofran] 4 mg PO Q8H #15 tablet 10/03/18 COPD: No GI Disorders: Yes (diverticulits) HTN: Yes - Immunization History Td Vaccination: Yes TDAP Vaccination: Yes Immunization Up to Date: Yes - Suicide/Smoking/Psychosocial Hx Smoking Status: Yes Smoking History: Current every day smoker Have you smoked in the past 12 months: No Number of Cigarettes Smoked Daily: 10 Information on smoking cessation initiated: No 'Breaking Loose' booklet given: 02/16/17 Hx Alcohol Use: No Drug/Substance Use Hx: No Substance Use Type: None Hx Substance Use Treatment: No Review of Systems - Review of Systems Constitutional: Yes: Chills, Fever, Weakness ABD/GI: Yes: Diarrhea, Nausea, Vomiting, Abdominal cramping. No: Blood Streaked Bowels, Rectal Bleeding : No: Dysuria *Physical Exam - Vital Signs Last Vital Signs Temp Pulse Resp BP Pulse Ox 97.9 F 109 H 18 124/77 97 10/03/18 13:04 10/03/18 13:04 10/03/18 13:04 10/03/18 13:04 10/03/18 13:04 - Physical Exam General Appearance: Yes: Appropriately Dressed, Moderate Distress HEENT: positive: Normal Voice Neck: positive: Supple Respiratory/Chest: negative: Respiratory Distress Gastrointestinal/Abdominal: positive: Normal Bowel Sounds, Tender (+ttp to LUQ, no CVAT), Soft. negative: Distended, Guarding, Rebound Musculoskeletal: negative: CVA Tenderness Integumentary: positive: Dry, Warm Neurologic: positive: Fully Oriented, Alert, Normal Mood/Affect ED Treatment Course - LABORATORY CBC & Chemistry Diagram: 10/03/18 13:29 10/03/18 13:29 Medical Decision Making - Medical Decision Making 10/03/18 13:14 52 yo F, h/o HTN, diverticulitis, usually medically managed, here w/ n/v/d x 3 days. Also reports fever of 99 F and sore throat as well. Developed LUQ pain this am. No dysuria or hematuria. Denies recent travel of sick contacts. No recent abx use. Feels weak and dizzy currently See exam R/o colitis/diverticultis vs viral illness -pain control -zofran -IVF -labs -CT 10/03/18 17:[address] unremarkable. UA w/ 1+ LE w/ 9 wbc and 23 alvaro. Pt has no dysuria or flank pain so will hold off on abx and send ucx. Will dc w/ supportive tx. Reasons to return d/w pt *DC/Admit/Observation/Transfer Diagnosis at time of Disposition: Viral syndrome - Discharge Dispostion Disposition: HOME Condition at time of disposition: Improved - Prescriptions Prescriptions: Ibuprofen [Motrin -] 600 mg PO QID #28 tablet Ondansetron HCl [Zofran] 4 mg PO Q8H #15 tablet - Referrals - Patient Instructions Printed Discharge Instructions: DI for Viral Syndrome Additional Instructions: Your labs and CT scan were normal here Rest, take meds and drink plenty of fluids Return as needed - Post Discharge Activity Forms/Work/School Notes: Back to Work
[2018-10-03] MEDS ORDERED: KETOROLAC TROMETHAMINE 30 MG/1 ML VIAL ONE ×2 (13:33→13:39)
[2018-10-03] MEDS ORDERED: ONDANSETRON 4 MG/2 ML VIAL ONE ×2 (13:34→13:39)
[2018-10-03 13:46] LABS: BASO % 0.8 % (0-2.0); EOS % 2.6 % (0-4.5); HEMATOCRIT 45.3 % (32.4-45.2); HEMOGLOBIN 15.5 GM/dL (10.7-15.3); LYMPH % 19.1 % (8-40); MCH 32.8 pg (25.7-33.7); MCHC 34.2 g/dl (32.0-36.0); MEAN CELL VOLUME 95.8 fl (80-96); MEAN PLT VOLUME 8.1 fl (7.5-11.1); MONO % 7.6 % (3.8-10.2); NEUT % 69.9 % (42.8-82.8); PLATELET COUNT 293 K/MM3 (134-434); RBC 4.73 M/mm3 (3.60-5.2); RDW 14.6 % (11.6-15.6); WHITE BLOOD COUNT 9.3 K/mm3 (4.0-10.0)
[2018-10-03 14:23] LABS: ALBUMIN 3.6 g/dl (3.4-5.0); BILIRUBIN,TOTAL 0.8 mg/dL (0.2-1); BLOOD UREA NITROGEN 12.9 mg/dL (7-18); CALCIUM 8.9 mg/dL (8.5-10.1); CREATININE 0.8 mg/dL (0.55-1.3); POTASSIUM 4.2 mmol/L (3.5-5.1); TOT PROT 7.3 g/dl (6.4-8.2)
[2018-10-03 15:02] LABS: EPI CELLS 10.9 /HPF (0-5/HPF); HYALINE CASTS 23 /lpf (0-8); PH,URINE 5.5 (5.0-8.0); URINE APPEARANCE TURBID; URINE BACTERIA 23.5 /hpf (NEGATIVE); URINE BILIRUBIN 2+ (NEGATIVE); URINE COLOR DK YELLOW; URINE GLUCOSE (UA) NEGATIVE (NEGATIVE); URINE KETONE TRACE (NEGATIVE); URINE LEUK ESTERASE 1+ (NEGATIVE); URINE NITRITE NEGATIVE (NEGATIVE); URINE PROTEIN 2+ (NEGATIVE); URINE RBC 1438 /hpf (0-4); URINE WBC 9 /hpf (0-5)
[2018-10-03 17:36] VITALS: BP 138/74; PULSE 92; TEMP 98.1
== END 2018-10-03 17:36 | disposition home or self-care (01) ==
LOC: JER 12:57
PROC: 3E033GC Introduction of Other Therapeutic Substance into Peripheral Vein, Percutaneous Approach (ICD-10-PCS; principal; 2018-10-03)
PROC: 3E0333Z Introduction of Anti-inflammatory into Peripheral Vein, Percutaneous Approach (ICD-10-PCS; 2018-10-03)
DX: B34.9 Viral infection, unspecified (principal); I10 Essential (primary) hypertension; Z87.19 Personal history of other diseases of the digestive system
CPT/HCPCS: 36415; 74177-TC; 80053; 81003; 84703; 85025; 87086; 99284-25; J7030

== ENCOUNTER 2019-03-20 14:59 | Emergency (ER) | payer SELFPAY ==
--- NOTE | 2019-03-20 15:11 | PDOC ---
Rapid Medical Evaluation Chief Complaint: Back Pain Time Seen by Provider: 03/20/19 15:07 Medical Evaluation: Allergies Allergy/AdvReac Type Severity Reaction Status Date / Time morphine AdvReac Mild Nausea Verified 03/20/19 15:07 03/20/19 15:08 Pt presents to the ER for lower back pain and chest pain, both of which started on Tuesday. The chest pain has been intermittent, resolved on Tuesday and started again today. She also notes her low back pain is chronic and has recently flared up on the L side. Pt also endorses taking a 3 hour long car ride with one stop to use the bathroom and she smokes half a pack a day. Exam: pt walking with a limp, TTP of L lower back Orders: labs, EKG, CXR Pt to proceed to the ER for further evaluation Discharge Disposition - Diagnosis Chest pain - Referrals - Patient Instructions - Post Discharge Activity
[2019-03-20 15:12] VITALS: BP 157/82; PULSE 119; TEMP 98.1; BMI 34.3
[2019-03-20 15:47] LABS: HEMATOCRIT 47.6 % (32.4-45.2); HEMOGLOBIN 16.2 GM/dL (10.7-15.3); LYMPH % 26.9 % (8-40); MCH 32.5 pg (25.7-33.7); MCHC 34.1 g/dl (32.0-36.0); MEAN CELL VOLUME 95.4 fl (80-96); MEAN PLT VOLUME 8.4 fl (7.5-11.1); MONO % 6.7 % (3.8-10.2); NEUT % 62.4 % (42.8-82.8); PLATELET COUNT 218 K/MM3 (134-434); RBC 4.99 M/mm3 (3.60-5.2); RDW 14.5 % (11.6-15.6); WHITE BLOOD COUNT 7.7 K/mm3 (4.0-10.0)
[2019-03-20 15:49] LABS: EPI CELLS 6.4 /HPF (0-5/HPF); HYALINE CASTS 2 /lpf (0-8); PH,URINE 5.5 (5.0-8.0); URINE APPEARANCE CLEAR; URINE BACTERIA 120.3 /hpf (NEGATIVE); URINE BILIRUBIN NEGATIVE (NEGATIVE); URINE COLOR YELLOW; URINE GLUCOSE (UA) NEGATIVE (NEGATIVE); URINE KETONE NEGATIVE (NEGATIVE); URINE LEUK ESTERASE NEGATIVE (NEGATIVE); URINE NITRITE NEGATIVE (NEGATIVE); URINE PROTEIN NEGATIVE (NEGATIVE); URINE WBC 2 /hpf (0-5)
[2019-03-20 16:23] LABS: ALBUMIN 3.8 g/dl (3.4-5.0); ALK PHOS 88 U/L (45-117); ANION GAP 4 MMOL/L (8-16); BILIRUBIN,TOTAL 1.1 mg/dL (0.2-1); CALCIUM 9.3 mg/dL (8.5-10.1); CHLORIDE 105 mmol/L (98-107); CO2 30 mmol/L (21-32); CREATININE 0.7 mg/dL (0.55-1.3); GLUCOSE,RANDOM 98 mg/dL (74-106); POTASSIUM 4.4 mmol/L (3.5-5.1); SGOT/AST 25 U/L (15-37); SGPT/ALT 41 U/L (13-61); SODIUM 140 mmol/L (136-145); TOT PROT 7.4 g/dl (6.4-8.2)
[2019-03-20] MEDS ORDERED: predniSONE 20 MG TABLET (UD) PO ONE (16:47)
[2019-03-20] MEDS ORDERED: predniSONE 20 MG TABLET (UD) ONE (17:07)
--- NOTE | 2019-03-20 17:14 | PDOC ---
History of Present Illness - General Chief Complaint: Chest Pain Stated Complaint: LOWER BACK PAIN Time Seen by Provider: 03/20/19 15:07 History Source: Patient Exam Limitations: No Limitations - History of Present Illness Initial Comments: 03/20/19 17:09 Patient is a 53-year-old female with history of hypertension not on any medication who presents to the ED with complaint of left lumbar/buttock pain that radiates all the way down to her foot for the last 5 days. She states she drove on a 3-hour trip and believes that is what started her pain. She states she has a history of sciatica and this feels exactly like her previous episode. She denies any numbness or tingling. She denies any fecal or urinary incontinence or retention. She does admit to having one episode 3 days ago of sharp chest pain and left upper extremity numbness that lasted only several minutes. She states the pain resolved spontaneously. She had the same pain again today and then came to the emergency department for evaluation. The patient is a smoker. She has tried taking Advil, Aleve, Tylenol for her back pain without any relief. Past History - Past Medical History Allergies/Adverse Reactions: Allergies Allergy/AdvReac Type Severity Reaction Status Date / Time morphine AdvReac Mild Nausea Verified 03/20/19 15:07 Home Medications: Ambulatory Orders Metronidazole [Flagyl] 500 mg PO TID #21 capsule 01/27/18 levoFLOXacin [Levaquin -] 500 mg PO DAILY #7 tablet 01/27/18 Tramadol HCl/Acetaminophen [Tramadol-Acetaminophn 37.5-325] 1 each PO BID #6 tablet MDD 2 01/31/18 Ibuprofen [Motrin -] 600 mg PO QID #28 tablet 10/03/18 Ondansetron HCl [Zofran] 4 mg PO Q8H #15 tablet 10/03/18 Methylprednisolone [Medrol Dose Junaid] 4 mg PO ASDIR #21 tablet 03/20/19 Oxycodone HCl/Acetaminophen [Percocet 5-325 mg Tablet] 1 tab PO Q6H PRN #12 tablet MDD 4 03/20/19 COPD: No GI Disorders: Yes (diverticulits) HTN: Yes - Immunization History Td Vaccination: Yes TDAP Vaccination: Yes Immunization Up to Date: Yes - Psycho Social/Smoking Cessation Hx Smoking Status: Yes Smoking History: Current every day smoker Have you smoked in the past 12 months: Yes Number of Cigarettes Smoked Daily: 20 Information on smoking cessation initiated: No 'Breaking Loose' booklet given: 02/16/17 Hx Alcohol Use: No Drug/Substance Use Hx: Yes Substance Use Type: None Hx Substance Use Treatment: No Review of Systems - Review of Systems Comments:: 03/20/19 17:11 - Review of Systems Able to Perform ROS?: Yes Constitutional: No: Fever, Chills, Loss of Appetite, Night Sweats, Weakness HEENTM: No: Eye Pain, Vision changes, Ear Pain, Throat Pain, Throat Swelling, Mouth Pain, Difficulty Swallowing Respiratory: No: Cough, Shortness of Breath, Wheezing, Sputum Production Cardiac (ROS): No: Chest Tightness, Palpitations, Irregular Heart Beat, Edema; Positive intermittent/resolved Chest Pain ABD/GI: No: Nausea, Vomiting, Abdominal Pain, Diarrhea : No Dysuria, No Hematuria, No Frequency, No Urgency, No Vaginal Discharge/ Pain, No Penile Discharge/Pain Musculoskeletal: No: Muscle Pain, Joint Pain, Muscle Weakness, Neck Pain; Positive: Back Pain Integumentary: No: Lesions, Rash Neurological: No: Headache, Numbness, Tingling, Weakness, Speech Difficulties *Physical Exam - Vital Signs Last Vital Signs Temp Pulse Resp BP Pulse Ox 98.1 F 119 H 24 H 157/82 98 03/20/19 15:07 03/20/19 15:07 03/20/19 15:07 03/20/19 15:07 03/20/19 15:07 - Physical Exam 03/20/19 17:12 - Physical Exam General Appearance: Nourished, Appropriately Dressed, No Distress Neck: Supple, No Lymphadenopathy (R), No Lymphadenopathy (L), No Rigidity, No Decreased range of motion Respiratory/Chest: Lungs Clear, Normal Breath Sounds. No Respiratory Distress, No Accessory Muscle Use Cardiovascular: Regular Rhythm, Regular Rate, S1, S2 Gastrointestinal/Abdominal: Normal Bowel Sounds, Soft. Non-tender, No Guarding , No Rebound, No Rigidity Musculoskeletal: Normal Inspection. No Decreased Range of Motion; Significant left lumbar and buttock tenderness to palpation. Pain exacerbated with external rotation of the hip. Patient is walking with a limp secondary to pain. Sensation intact to the bilateral lower extremities to light touch. Strength 5/5 bilateral lower extremities. Extremity: Normal Capillary Refill, Normal Inspection Integumentary: Normal Color, Dry. No Rash Neurologic: qc tech II-XII NML intact, Fully Oriented, Alert, Normal Mood/Affect, Normal Response Heart Score/ECG Review - History History: Slightly suspicious - Electrocardiogram EKG: Normal - Age Age: 45-65 - Risk Factors Risk Factors Heart Score: Yes Hx Hypertension Based on the list above the patient has:: 1-2 risk factors - Troponin Troponin: </= normal limit - Score Heart Score - Total: 2 - ECG Intrepretation Rhythm: Regular Rhythm - Hulen Hulen: Normal ED Treatment Course - LABORATORY CBC & Chemistry Diagram: 03/20/19 15:30 03/20/19 15:30 - ADDITIONAL ORDERS Additional order review: Laboratory Results 03/20/19 03/20/19 15:30 15:30 Sodium 140 Potassium 4.4 Chloride 105 Carbon Dioxide 30 Anion Gap 4 L BUN 9.0 Creatinine 0.7 Est GFR (CKD-EPI)AfAm 115.45 Est GFR (CKD-EPI)NonAf 99.62 Random Glucose 98 Calcium 9.3 Total Bilirubin 1.1 H AST 25 ALT 41 Alkaline Phosphatase 88 Creatine Kinase 56 Troponin I < 0.02 Total Protein 7.4 Albumin 3.8 Urine Color Yellow Urine Appearance Clear Urine pH 5.5 Ur Specific [place] 1.016 Urine Protein Negative Urine Glucose (UA) Negative Urine Ketones Negative Urine Blood 1+ H Urine Nitrite Negative Urine Bilirubin Negative Urine Urobilinogen 1.0 Ur Leukocyte Esterase Negative Urine WBC (Auto) 2 Urine Casts (Auto) 2 U Epithel Cells (Auto) 6.4 Urine Bacteria (Auto) 120.3 03/20/19 15:30 RBC 4.99 MCV 95.4 MCHC 34.1 RDW 14.5 MPV 8.4 Neutrophils % 62.4 Lymphocytes % 26.9 D Monocytes % 6.7 Eosinophils % 3.0 Basophils % 1.0 Medical Decision Making - Medical Decision Making 03/20/19 17:13 Assessment: 53 y/o female with Left lumbar pain with radiculopathy and atypical chest pain. Plan: -Labs negative including troponin -EKG NSR @98, no significant T wave abnormalities -Percocet/Prednisone PO -Will reassess 03/20/19 18:16 Patient is feeling much better after medications. I have made her aware that her sciatica may take several doses of medicine to resolve. We will discharge her with a prescription for Percocet and a Medrol Dosepak. We will give her follow-up with spine surgery. The patient also will be discharged with atypical chest pain with a low heart score making her very low risk. She will follow-up with primary care and referral has been given. She understands and agrees with this treatment and plan and has been given strict return precautions such as shortness of breath, chest pain, palpitations or any other worsening symptoms. She understands and agrees with this treatment plan and she is stable for discharge. Discharge - Discharge Information Problems reviewed: Yes Clinical Impression/Diagnosis: Chest pain, Atypical chest pain, Sciatica of left side Condition: Stable Disposition: HOME - Additional Discharge Information Prescriptions: Methylprednisolone [Medrol Dose Junaid] 4 mg PO ASDIR #21 tablet Oxycodone HCl/Acetaminophen [Percocet 5-325 mg Tablet] 1 tab PO Q6H PRN #12 tablet MDD 4 PRN Reason: Pain - Follow up/Referral Referrals: [facility] [Provider Group] - 2 Days Isidro Reaves MD, [facility] [Staff Physician] - 1 week - Patient Discharge Instructions Patient Printed Discharge Instructions: DI for Atypical Chest Pain, DI for Sciatica Additional Instructions: Get plenty of rest and drink plenty of fluids. Follow-up with primary care within 1 to 2 days for repeat evaluation. You should follow-up with a spine surgeon for further evaluation and treatment and a referral has been given to you. Return to the emergency department for worsening chest pain, shortness of breath, palpitations or any other worsening symptoms. - Post Discharge Activity Work/Back to School Note: Back to Work
[2019-03-20 17:16] LABS: URINE RBC 7.2 /hpf (0-4)
--- NOTE | 2019-03-21 10:43 | EKG ---
Test Reason : Blood Pressure : / mmHG Vent. Rate : 098 BPM Atrial Rate : 098 BPM P-R Int : 116 ms QRS Dur : 086 ms QT Int : 368 ms P-R-T Axes : 043 076 066 degrees QTc Int : 469 ms NORMAL SINUS RHYTHM POSSIBLE LEFT ATRIAL ENLARGEMENT NONSPECIFIC ST ABNORMALITY ABNORMAL ECG WHEN COMPARED WITH ECG OF 16-FEB-2017 10:45, NO SIGNIFICANT CHANGE WAS FOUND Confirmed by Rajeev Cabral MD ([id number]) on 03/21/2019 10:43:32 AM Referred By: Confirmed By:Rajeev Cabral MD
== END 2019-03-20 18:22 | disposition home or self-care (01) ==
LOC: JER 14:59
DX: R07.9 Chest pain, unspecified (principal); M54.42 Lumbago with sciatica, left side; M54.16 Radiculopathy, lumbar region; I10 Essential (primary) hypertension; F17.210 Nicotine dependence, cigarettes, uncomplicated; Z87.19 Personal history of other diseases of the digestive system
CPT/HCPCS: 36415; 71046-TC-FY; 80053; 81003; 82550; 84484; 85025; 93005; 93010; 99285-25

== ENCOUNTER 2020-06-24 11:22 | Emergency (ER) | payer SELFPAY ==
[2020-06-24 12:01] VITALS: BMI 29.9
[2020-06-24] MEDS ORDERED: SODIUM CHLORIDE 1,000 ML IV STA (12:44)
[2020-06-24] MEDS ORDERED: METOCLOPRAMIDE HCL INJECTION 10 MG/2 ML VIAL IVPB ONE (12:44)
[2020-06-24] MEDS ORDERED: KETOROLAC TROMETHAMINE 30 MG/1 ML VIAL IVPUSH ONE (12:44)
[2020-06-24] MEDS ORDERED: METOCLOPRAMIDE HCL INJECTION 10 MG/2 ML VIAL ONE (13:18)
[2020-06-24] MEDS ORDERED: KETOROLAC TROMETHAMINE 15 MG/ML VIAL ONE (13:19)
[2020-06-24 13:23] LABS: LYMPH % 27.5 % (8-40); MCH 32.9 pg (25.7-33.7); MEAN PLT VOLUME 8.8 fl (7.5-11.1)
[2020-06-24 13:29] LABS: BASO % 1.1 % (0-2.0); EOS % 3.5 % (0-4.5); HEMATOCRIT 47.3 % (32.4-45.2); HEMOGLOBIN 16.2 GM/dL (10.7-15.3); MCHC 34.3 g/dl (32.0-36.0); MEAN CELL VOLUME 95.8 fl (80-96); MONO % 6.4 % (3.8-10.2); NEUT % 61.5 % (42.8-82.8); PLATELET COUNT 266 K/MM3 (134-434); RBC 4.94 M/mm3 (3.60-5.2); RDW 13.9 % (11.6-15.6); WHITE BLOOD COUNT 7.7 K/mm3 (4.0-10.0)
[2020-06-24 13:37] LABS: CHLORIDE 106 mmol/L (98-107); SODIUM 138 mmol/L (136-145)
[2020-06-24 13:39] LABS: ALBUMIN 3.7 g/dl (3.4-5.0); BLOOD UREA NITROGEN 13.2 mg/dL (7-18); CALCIUM 9.3 mg/dL (8.5-10.1); CO2 28 mmol/L (21-32); GLUCOSE,RANDOM 98 mg/dL (74-106)
[2020-06-24 13:41] LABS: LIPASE 34 U/L (73-393)
[2020-06-24 13:43] LABS: BILIRUBIN,TOTAL 0.8 mg/dL (0.2-1); CREATININE 0.8 mg/dL (0.55-1.3); SGOT/AST 76 U/L (15-37)
[2020-06-24 13:44] LABS: TOT PROT 8.1 g/dl (6.4-8.2)
[2020-06-24 13:46] LABS: ALK PHOS 78 U/L (45-117); ANION GAP 4 MMOL/L (8-16); SGPT/ALT 39 U/L (13-61)
[2020-06-24] MEDS ORDERED: DICYCLOMINE HCL 20 MG TABLET PO ONE (15:49)
[2020-06-24] MEDS ORDERED: DICYCLOMINE HCL 10 MG CAPSULE ONE (16:02)
[2020-06-24 16:12] LABS: PH,URINE 5.5 (5.0-8.0); URINE APPEARANCE CLEAR; URINE BILIRUBIN NEGATIVE (NEGATIVE); URINE COLOR DK YELLOW; URINE GLUCOSE (UA) NEGATIVE (NEGATIVE); URINE KETONE TRACE (NEGATIVE); URINE LEUK ESTERASE NEGATIVE (NEGATIVE); URINE NITRITE NEGATIVE (NEGATIVE); URINE PROTEIN TRACE (NEGATIVE)
[2020-06-24 16:13] VITALS: BP 167/96; PULSE 80; TEMP 98
== END 2020-06-24 16:30 | disposition home or self-care (01) ==
LOC: JER 11:22
PROC: 3E0333Z Introduction of Anti-inflammatory into Peripheral Vein, Percutaneous Approach (ICD-10-PCS; principal; 2020-06-24)
PROC: 3E033GC Introduction of Other Therapeutic Substance into Peripheral Vein, Percutaneous Approach (ICD-10-PCS; 2020-06-24)
PROC: 3E0337Z Introduction of Electrolytic and Water Balance Substance into Peripheral Vein, Percutaneous Approach (ICD-10-PCS; 2020-06-24)
DX: K52.9 Noninfective gastroenteritis and colitis, unspecified (principal); R10.12 Left upper quadrant pain; R11.14 Bilious vomiting
CPT/HCPCS: 36415; 74176-TC; 80053; 81003; 83690; 84132; 84703; 85025; 87086; 99284-25

== ENCOUNTER 2021-11-29 04:01 | Observation (INO) | payer BC ==
[2021-11-29 04:12] VITALS: BMI 33.0
[2021-11-29 05:01] LABS: BASO % 0.6 % (0-2.0); EOS % 0.8 % (0-4.5); HEMATOCRIT 51.6 % (32.4-45.2); HEMOGLOBIN 17.7 GM/dL (10.7-15.3); LYMPH % 16.9 % (8-40); MCH 32.1 pg (25.7-33.7); MCHC 34.4 g/dl (32.0-36.0); MEAN CELL VOLUME 93.3 fl (80-96); MEAN PLT VOLUME 8.5 fl (7.5-11.1); MONO % 8.4 % (3.8-10.2); NEUT % 73.3 % (42.8-82.8); PLATELET COUNT 253 10^3/uL (134-434); RBC 5.53 M/mm3 (3.60-5.2); RDW 14.4 % (11.6-15.6); WHITE BLOOD COUNT 12.2 K/mm3 (4.0-10.0)
[2021-11-29 05:22] LABS: CHLORIDE 103 mmol/L (98-107); SODIUM 138 mmol/L (136-145)
[2021-11-29 05:23] LABS: CALCIUM 9.6 mg/dL (8.5-10.1)
[2021-11-29 05:24] LABS: ALBUMIN 4.2 g/dl (3.4-5.0); ANION GAP 8 MMOL/L (8-16); CO2 27 mmol/L (21-32); GLUCOSE,RANDOM 112 mg/dL (74-106)
[2021-11-29 05:27] LABS: CREATININE 0.8 mg/dL (0.55-1.3); SGOT/AST 15 U/L (15-37); SGPT/ALT 25 U/L (13-61)
[2021-11-29 05:28] LABS: BILIRUBIN,TOTAL 0.9 mg/dL (0.2-1); TOT PROT 8.1 g/dl (6.4-8.2)
[2021-11-29 05:31] LABS: ALK PHOS 85 U/L (45-117)
[2021-11-29] MEDS ORDERED: HALOPERIDOL LACTATE 5 MG/ML IM ONE ×2 (06:40)
[2021-11-29] MEDS ORDERED: MIDAZOLAM HCL 2 MG/2 ML SINGLE DOSE VIAL IVPUSH ONE (06:43)
[2021-11-29] MEDS ORDERED: MIDAZOLAM HCL 2 MG/2 ML SINGLE DOSE VIAL ONE (06:44)
[2021-11-29] MEDS ORDERED: MIDAZOLAM HCL 2 MG/2 ML SINGLE DOSE VIAL IM ONE (06:49)
[2021-11-29 06:54] LABS: EPI CELLS 6 /uL (0-25.1); HYALINE CASTS 0 /uL (0-3.1); URINE APPEARANCE CLEAR; URINE BACTERIA 22 /uL (0-1359); URINE BILIRUBIN NEGATIVE (NEGATIVE); URINE COLOR YELLOW; URINE GLUCOSE (UA) NEGATIVE (NEGATIVE); URINE KETONE NEGATIVE (NEGATIVE); URINE LEUK ESTERASE NEGATIVE (NEGATIVE); URINE NITRITE NEGATIVE (NEGATIVE); URINE PROTEIN NEGATIVE (NEGATIVE); URINE RBC 10 /uL (0-23.9); URINE UROBILINOGEN 0.2 mg/dL (0.2-1.0); URINE WBC 1 /uL (0-25.8)
[2021-11-29 06:58] LABS: METHADONE, UR NEGATIVE (NEGATIVE); PHENCYCLIDINE,URINE NEGATIVE (NEGATIVE); URINE BENZODIAZEPINES NEGATIVE (NEGATIVE)
[2021-11-29 07:00] LABS: OPIATES, URI NEGATIVE (NEGATIVE); URINE BARBITURATES NEGATIVE (NEGATIVE)
[2021-11-29 07:03] LABS: COCAINE, UR NEGATIVE (NEGATIVE); URINE AMPHETAMINES NEGATIVE (NEGATIVE)
[2021-11-29] MEDS ORDERED: OLANZapine 10 MG TABLET ONE (21:26)
[2021-11-29] MEDS: OLANZapine 10 MG TABLET PO SCH (21:39)
[2021-11-30] MEDS ORDERED: OLANZapine 10 MG TABLET ONE (11:49)
[2021-11-30] MEDS: OLANZapine 10 MG TABLET PO SCH ×2 (11:54→21:08)
[2021-11-30] MEDS ORDERED: SODIUM CHLORIDE 0.45% 1,000 ML IV SCH (14:45)
[2021-11-30 16:53] LABS: HEMATOCRIT 46.8 % (32.4-45.2); HEMOGLOBIN 15.5 GM/dL (10.7-15.3); LYMPH % 32.1 % (8-40); MCH 31.1 pg (25.7-33.7); MCHC 33.1 g/dl (32.0-36.0); MEAN PLT VOLUME 8.3 fl (7.5-11.1); MONO % 8.8 % (3.8-10.2); NEUT % 54.1 % (42.8-82.8); PLATELET COUNT 219 10^3/uL (134-434); RBC 4.98 M/mm3 (3.60-5.2); RDW 14.3 % (11.6-15.6); WHITE BLOOD COUNT 9.5 K/mm3 (4.0-10.0)
[2021-11-30 18:39] VITALS: RESP 18
[2021-11-30 19:13] LABS: ALBUMIN 3.6 g/dl (3.4-5.0); CALCIUM 9.7 mg/dL (8.5-10.1)
[2021-11-30 19:14] LABS: BLOOD UREA NITROGEN 24.8 mg/dL (7-18); MAGNESIUM 2.1 mg/dL (1.8-2.4)
[2021-11-30 19:17] LABS: CREATININE 0.8 mg/dL (0.55-1.3); PHOSPHOROUS 3.8 mg/dL (2.5-4.9)
[2021-11-30 19:18] LABS: BILIRUBIN,TOTAL 0.4 mg/dL (0.2-1); TOT PROT 6.9 g/dl (6.4-8.2)
[2021-11-30] MEDS ORDERED: MELATONIN 5 MG TABLETS PO ONE (22:20)
[2021-12-01] MEDS ORDERED: FLU VACC QS2022-23(6MOS UP)/PF 60 MCG/0.5 ML SYRINGE IM ONE (10:00)
[2021-12-01] MEDS ORDERED: ENOXAPARIN NA (PORCINE) 40 MG/0.4 ML DISP.SYRIN SQ SCH (10:00)
[2021-12-01 10:22] LABS: BASO % 1.2 % (0-2.0); EOS % 3.3 % (0-4.5); HEMATOCRIT 44.3 % (32.4-45.2); HEMOGLOBIN 14.7 GM/dL (10.7-15.3); LYMPH % 23.8 % (8-40); MCH 31.3 pg (25.7-33.7); MCHC 33.1 g/dl (32.0-36.0); MEAN CELL VOLUME 94.4 fl (80-96); MEAN PLT VOLUME 8.4 fl (7.5-11.1); MONO % 7.9 % (3.8-10.2); NEUT % 63.8 % (42.8-82.8); PLATELET COUNT 222 10^3/uL (134-434); RBC 4.69 M/mm3 (3.60-5.2); RDW 14.3 % (11.6-15.6); WHITE BLOOD COUNT 7.8 K/mm3 (4.0-10.0)
[2021-12-01 10:51] LABS: ALBUMIN 3.5 g/dl (3.4-5.0)
[2021-12-01 10:53] LABS: PHOSPHOROUS 3.5 mg/dL (2.5-4.9)
[2021-12-01 10:54] LABS: BLOOD UREA NITROGEN 21.1 mg/dL (7-18); CREATININE 0.7 mg/dL (0.55-1.3)
[2021-12-01 10:55] LABS: BILIRUBIN,TOTAL 0.5 mg/dL (0.2-1); TOT PROT 6.5 g/dl (6.4-8.2)
[2021-12-01] MEDS: OLANZapine 10 MG TABLET PO SCH (12:09)
[2021-12-01 15:51] VITALS: BP 139/74; PULSE 104; TEMP 98
== END 2021-12-01 18:43 | disposition home or self-care (01) ==
LOC: JER 04:01 → JERBED 11-30 12:13 → J6S 11-30 18:53
PROVIDERS: ADMIT Internal Medicine; ATTEND Nurse Practitioner Family
PROC: 3E0234Z Introduction of Serum, Toxoid and Vaccine into Muscle, Percutaneous Approach (ICD-10-PCS; principal; 2021-11-30)
PROC: 3E033NZ Introduction of Analgesics, Hypnotics, Sedatives into Peripheral Vein, Percutaneous Approach (ICD-10-PCS; 2021-11-30)
DX: F31.9 Bipolar disorder, unspecified (principal); I10 Essential (primary) hypertension; F20.9 Schizophrenia, unspecified; E66.8 Other obesity; Z68.33 Body mass index [BMI] 33.0-33.9, adult; Z88.5 Allergy status to narcotic agent; R45.851 Suicidal ideations; Z72.0 Tobacco use; F60.0 Paranoid personality disorder
CPT/HCPCS: 36415; 80053; 80307; 81003; 82962; 83735; 84100; 84703; 85025; 87086; 93005; 93010; 96372; 99285-25; C9803-CS; G0378; Q2036; U0003; U0005

== ENCOUNTER 2022-07-28 21:58 | Emergency (ER) | payer BC ==
[2022-07-28 22:17] VITALS: BP 134/84; PULSE 93; RESP 20; TEMP 97.9; BMI 34.3
[2022-07-28] MEDS ORDERED: SODIUM CHLORIDE 0.9% 1000 ML INFUS.BAG IV ONE (22:45)
[2022-07-28] MEDS ORDERED: KETOROLAC TROMETHAMINE 30 MG/1 ML VIAL IM ONE (22:53)
[2022-07-28] MEDS ORDERED: KETOROLAC TROMETHAMINE 30 MG/1 ML VIAL ONE (22:54)
[2022-07-28 22:57] LABS: BASO % 0.7 % (0-2.0); EOS % 4.4 % (0-4.5); HEMATOCRIT 47.2 % (32.4-45.2); LYMPH % 23.3 % (8-40); MCH 31.4 pg (25.7-33.7); MEAN CELL VOLUME 92.5 fl (80-96); MEAN PLT VOLUME 7.9 fl (7.5-11.1); MONO % 6.9 % (3.8-10.2); NEUT % 64.7 % (42.8-82.8); PLATELET COUNT 255 10^3/uL (134-434); RDW 14.8 % (11.6-15.6); WHITE BLOOD COUNT 9.5 K/mm3 (4.0-10.0)
[2022-07-28 23:19] LABS: POTASSIUM 3.5 mmol/L (3.5-5.1)
[2022-07-28 23:22] LABS: CALCIUM 9.3 mg/dL (8.5-10.1)
[2022-07-28 23:23] LABS: ALBUMIN 3.6 g/dl (3.4-5.0); BLOOD UREA NITROGEN 16.6 mg/dL (7-18)
[2022-07-28 23:26] LABS: CREATININE 0.7 mg/dL (0.55-1.3)
[2022-07-28 23:27] LABS: TOT PROT 7.4 g/dl (6.4-8.2)
[2022-07-28 23:28] LABS: BILIRUBIN,TOTAL 0.7 mg/dL (0.2-1)
[2022-07-29 00:09] LABS: EPI CELLS >36 /uL (0-25.1); HYALINE CASTS 9 /uL (0-3.1); PH,URINE 5.5 (5.0-8.0); URINE APPEARANCE CLEAR; URINE BACTERIA 1176 /uL (0-1359); URINE BILIRUBIN 1+ (NEGATIVE); URINE COLOR DK YELLOW; URINE GLUCOSE (UA) NEGATIVE (NEGATIVE); URINE KETONE TRACE (NEGATIVE); URINE LEUK ESTERASE NEGATIVE (NEGATIVE); URINE NITRITE NEGATIVE (NEGATIVE); URINE PROTEIN 1+ (NEGATIVE)
== END 2022-07-29 01:03 | disposition home or self-care (01) ==
LOC: JER 21:58
PROC: 3E0233Z Introduction of Anti-inflammatory into Muscle, Percutaneous Approach (ICD-10-PCS; principal; 2022-07-28)
DX: G44.209 Tension-type headache, unspecified, not intractable (principal); E86.0 Dehydration; T73.3XXA Exhaustion due to excessive exertion, initial encounter
CPT/HCPCS: 0241U-QW; 36415; 80053; 81003; 84443; 85025; 99284-25

== ENCOUNTER 2023-10-04 18:35 | Emergency (ER) | payer SELFPAY ==
[2023-10-04 18:46] VITALS: RESP 18; TEMP 98.2; BMI 36.0
[2023-10-04] MEDS ORDERED: ONDANSETRON 4 MG/2 ML VIAL ONE (19:55)
[2023-10-04] MEDS ORDERED: FAMOTIDINE 20 MG/50 ML IVPB 20 MG/50 ML MG IVPB ONE (19:55)
[2023-10-04] MEDS ORDERED: ACETAMINOPHEN INJECTION 100 ML ONE (19:55)
[2023-10-04] MEDS: ACETAMINOPHEN 1000 MG/100 ML BAG IVPB ONE (20:09)
[2023-10-04] MEDS: SODIUM CHLORIDE 0.9% 500 ML INFUS.BAG IV ONE (20:09)
[2023-10-04] MEDS: FAMOTIDINE 20 MG/50 ML IVPB 20 MG/50 ML MG IVPB ONE (20:09)
[2023-10-04] MEDS: ONDANSETRON 4 MG/2 ML VIAL IVPUSH ONE (20:09)
[2023-10-04 20:22] LABS: BASO % 1.1 % (0-2.0); EOS % 3.8 % (0-4.5); HEMATOCRIT 46.6 % (32.4-45.2); HEMOGLOBIN 15.9 GM/dL (10.7-15.3); LYMPH % 28.6 % (8-40); MCH 31.2 pg (25.7-33.7); MCHC 34.1 g/dl (32.0-36.0); MEAN CELL VOLUME 91.6 fl (80-96); MEAN PLT VOLUME 8.2 fl (7.5-11.1); MONO % 6.1 % (3.8-10.2); NEUT % 60.4 % (42.8-82.8); PLATELET COUNT 273 10^3/uL (134-434); RBC 5.09 M/mm3 (3.60-5.2); RDW 13.9 % (11.6-15.6); WHITE BLOOD COUNT 11.1 K/mm3 (4.0-10.0)
[2023-10-04 20:25] LABS: EPI CELLS >36 /uL (0-25.1); HYALINE CASTS 1 /uL (0-3.1); PH,URINE 5.5 (5.0-8.0); URINE APPEARANCE CLOUDY; URINE BACTERIA 3218 /uL (0-1359); URINE BILIRUBIN NEGATIVE (NEGATIVE); URINE COLOR DK YELLOW; URINE GLUCOSE (UA) NEGATIVE (NEGATIVE); URINE KETONE TRACE (NEGATIVE); URINE LEUK ESTERASE TRACE (NEGATIVE); URINE NITRITE NEGATIVE (NEGATIVE); URINE PROTEIN TRACE (NEGATIVE); URINE WBC 86 /uL (0-25.8)
[2023-10-04 20:38] LABS: POTASSIUM 3.3 mmol/L (3.5-5.1)
[2023-10-04 20:40] LABS: CALCIUM 9.5 mg/dL (8.5-10.1)
[2023-10-04 20:41] LABS: ALBUMIN 3.8 g/dl (3.4-5.0); BLOOD UREA NITROGEN 12.8 mg/dL (7-18)
[2023-10-04 20:44] LABS: CREATININE 0.8 mg/dL (0.55-1.3); URINE RBC 15 /uL (0-23.9)
[2023-10-04 20:45] LABS: BILIRUBIN,TOTAL 0.4 mg/dL (0.2-1); PHOSPHOROUS 3.6 mg/dL (2.5-4.9)
[2023-10-04 20:46] LABS: TOT PROT 7.6 g/dl (6.4-8.2)
[2023-10-04] MEDS ORDERED: POTASSIUM CHLORIDE ORAL LIQUID 20 MEQ/15 ML ONE (20:48)
[2023-10-04] MEDS: POTASSIUM CHLORIDE ORAL LIQUID 20 MEQ/15 ML PO ONE (20:53)
[2023-10-04 21:48] LABS: HIV INTERPRETATION NEGATIVE (NEGATIVE)
[2023-10-04 21:57] VITALS: BP 132/70; PULSE 91
== END 2023-10-04 21:57 | disposition home or self-care (01) ==
LOC: JER 18:35
PROC: 3E033GC Introduction of Other Therapeutic Substance into Peripheral Vein, Percutaneous Approach (ICD-10-PCS; principal; 2023-10-04)
PROC: 3E033GC Introduction of Other Therapeutic Substance into Peripheral Vein, Percutaneous Approach (ICD-10-PCS; 2023-10-04)
PROC: 3E033NZ Introduction of Analgesics, Hypnotics, Sedatives into Peripheral Vein, Percutaneous Approach (ICD-10-PCS; 2023-10-04)
DX: R11.2 Nausea with vomiting, unspecified (principal); R19.7 Diarrhea, unspecified; R05.9 Cough, unspecified; M79.10 Myalgia, unspecified site; J06.9 Acute upper respiratory infection, unspecified; R31.9 Hematuria, unspecified; R50.9 Fever, unspecified; Z20.822 Contact with and (suspected) exposure to COVID-19
CPT/HCPCS: 0241U-QW; 36415; 80053; 81003; 83735; 84100; 85025; 86803; 87086; 87389; 99284-25; J0131

== ENCOUNTER 2023-11-02 09:40 | Emergency (ER) | payer BC ==
[2023-11-02 10:03] VITALS: BP 122/81; PULSE 99; RESP 20; TEMP 98.3; BMI 34.3
[2023-11-02] MEDS: MECLIZINE HCL 25 MG TABLET (FP) PO ONE (11:43)
[2023-11-02] MEDS: ACETAMINOPHEN 325 MG TABLET (FP) PO ONE (11:43)
[2023-11-02] MEDS: ONDANSETRON *ODT* 4 MG TABLET SL ONE (11:43)
[2023-11-02 12:37] LABS: BASO % 1.2 % (0-2.0); EOS % 4.2 % (0-4.5); HEMATOCRIT 45.9 % (32.4-45.2); HEMOGLOBIN 15.5 GM/dL (10.7-15.3); LYMPH % 25.3 % (8-40); MCH 31.2 pg (25.7-33.7); MCHC 33.8 g/dl (32.0-36.0); MEAN CELL VOLUME 92.5 fl (80-96); MEAN PLT VOLUME 7.9 fl (7.5-11.1); MONO % 6.1 % (3.8-10.2); NEUT % 63.2 % (42.8-82.8); PLATELET COUNT 250 10^3/uL (134-434); RBC 4.96 M/mm3 (3.60-5.2); RDW 13.9 % (11.6-15.6); WHITE BLOOD COUNT 9.1 K/mm3 (4.0-10.0)
[2023-11-02 13:00] LABS: POTASSIUM 3.5 mmol/L (3.5-5.1)
[2023-11-02 13:01] LABS: CALCIUM 9.4 mg/dL (8.5-10.1)
[2023-11-02 13:02] LABS: ALBUMIN 3.5 g/dl (3.4-5.0); BLOOD UREA NITROGEN 11.3 mg/dL (7-18)
[2023-11-02 13:05] LABS: CREATININE 0.9 mg/dL (0.55-1.3)
[2023-11-02 13:06] LABS: BILIRUBIN,TOTAL 0.6 mg/dL (0.2-1)
== END 2023-11-02 15:45 | disposition home or self-care (01) ==
LOC: JER 09:40
DX: R50.9 Fever, unspecified (principal); R51.9 Headache, unspecified; R42 Dizziness and giddiness; R19.7 Diarrhea, unspecified; R05.9 Cough, unspecified; R06.02 Shortness of breath; R09.81 Nasal congestion; M79.10 Myalgia, unspecified site; R07.9 Chest pain, unspecified; Z20.822 Contact with and (suspected) exposure to COVID-19
CPT/HCPCS: 0241U-QW; 36415; 71046-TC-FY; 80053; 84484; 85025; 93005; 93010; 99285-25; Q0162